=== PATIENT | male | born 1935 | race Caucasian/White ===

== ENCOUNTER 2016-07-24 17:07 | Outpatient (CLI) | payer MEDICARE | END 2016-07-24 17:08 | disposition critical access hospital (66) | LOC: EMS 17:07 | PROVIDERS: ATTEND Surgery | DX: R09.89 Other specified symptoms and signs involving the circulatory and respiratory systems (principal) | CPT/HCPCS: A0425; A0429 ==

== ENCOUNTER 2016-07-24 17:35 | Emergency (ER) | payer MEDICARE ==
[2016-07-24] MEDS ORDERED: IPRATROPIUM/ALBUTEROL 3 ML NEB INH STA (18:35)
[2016-07-24] MEDS ORDERED: SODIUM CHLORIDE 0.9% 1,000 ML IV ONE (18:37)
--- NOTE | 2016-07-24 18:38 | ED Physician Documentation ---
PD HPI DYSPNEA - Stated complaint Stated Complaint: SOA, LETHARGIC - Chief complaint Chief Complaint: Resp - History obtained from History obtained from: Patient, Family, EMS - History of Present Illness Timing - onset: How many weeks ago (2) Timing - onset during: Rest Timing - duration: Weeks (2) Timing - details: Gradual onset Pain level max: 0 Pain level now: 0 Inciting event(s): No: Out of meds, URI Improved by: O2, Rest Worsened by: Exertion Associated symptoms: Cough, Wheezing. No: Fever, Hemoptysis, Chest pain / discomfort, Palpitations Similar symptoms before: Diagnosis (COPD) Recently seen: Clinic (seen in clinic today for same. sent for chest xray) Review of Systems Constitutional: denies: Fever, Chills Throat: denies: Sore throat GI: denies: Abdominal Pain, Vomiting, Diarrhea Skin: denies: Rash Neurologic: denies: Confused, Altered mental status PD PAST MEDICAL HISTORY - Past Medical History Cardiovascular: Coronary artery disease Respiratory: Asthma Neuro: None Endocrine/Autoimmune: None : None HEENT: None Psych: None Musculoskeletal: Osteoarthritis Derm: None - Past Surgical History Past Surgical History: Yes Cardiovascular: CABG - Present Medications Home Medications: Ambulatory Orders Medication Instructions Recorded Confirmed Fluticasone 44 Mcg [Flovent] 07/08/15 metFORMIN [Glucophage] 07/08/15 Atenolol 50 mg PO DAILY 07/24/16 07/24/16 Azithromycin [Zithromax] 250 mg PO DAILY #4 tablet 07/24/16 Lisinopril [Prinivil] 15 mg PO DAILY 07/24/16 07/24/16 Montelukast [Singulair] 10 mg DAILY 07/24/16 07/24/16 - Allergies Allergies/Adverse Reactions: Allergies Allergy/AdvReac Type Severity Reaction Status Date / Time No Known Drug Allergies Allergy Verified 07/24/16 17:50 - Social History Does the pt smoke?: No Smoking Status: Never smoker Does the pt drink ETOH?: No Does the pt have substance abuse?: No - Immunizations Immunizations are current?: Yes - POLST Patient has POLST: No PD ED PE NORMAL - Vitals Vital signs reviewed: Yes - General General: Alert and oriented X 3, No acute distress, Other (Frail) - HEENT HEENT: Other (Dry lips) - Neck Neck: Supple, no meningeal sign - Cardiac Cardiac: RRR - Respiratory Respiratory: Other (Very diminished breath sounds bilaterally.) - Abdomen Abdomen: Soft, Non tender - Derm Derm: Warm and dry - Extremities Extremities: No edema - Neuro Neuro: Alert and oriented X 3 - Psych Psych: Normal mood, Normal affect Results - Vitals Vitals: Vital Signs - 24 hr 07/24/16 07/24/16 07/24/16 17:37 18:15 18:45 Temperature 36.4 C L Heart Rate 77 74 73 Respiratory 20 16 20 Rate Blood Pressure 105/63 106/57 L 105/63 O2 Saturation 92 94 91 L 07/24/16 07/24/16 07/24/16 19:15 19:21 20:00 Temperature Heart Rate 74 72 73 Respiratory 18 16 18 Rate Blood Pressure 108/61 O2 Saturation 93 07/24/16 07/24/16 20:25 20:35 Temperature Heart Rate 72 78 Respiratory 18 18 Rate Blood Pressure 105/56 L O2 Saturation 95 Oxygen O2 Source Room air - Labs Labs: Laboratory Tests 07/24/16 07/24/16 18:53 18:53 WBC 19.6 H RBC 3.45 L Hgb 11.8 L Hct 35.0 L MCV 101.4 H MCH 34.1 H MCHC 33.6 RDW 14.1 Plt Count 288 MPV 8.1 Neut # 16.0 H Lymph # 1.7 [place] # 1.5 H Eos # 0.2 Baso # 0.1 Absolute Nucleated RBC 0.00 Nucleated RBCs 0.0 Sodium 136 Potassium 3.8 Chloride 103 Carbon Dioxide 26 Anion Gap 7.0 BUN 19 Creatinine 0.4 L Estimated GFR (MDRD) 205 Glucose 127 H Calcium 8.9 Total Bilirubin 0.4 AST 14 ALT 12 Alkaline Phosphatase 72 Total Protein 7.1 Albumin 3.6 Globulin 3.5 Albumin/Globulin Ratio 1.0 Lipase 23 - Rads (name of study) cxr Radiology: Prelim report reviewed, EMP read contemporaneously, See rad report ( IMPRESSION: Increased interstitial densities at right lung base consistent with worsening airway inflammation or bronchiolitis without consolidation. Hiatal hernia unchanged. ) PD MEDICAL DECISION MAKING - ED course Complexity details: reviewed old records, reviewed results, re-evaluated patient , considered differential, d/w patient, d/w family ED course: Patient is an 81-year-old male with a history of asthma versus COPD. Was given nebulizer treatments here as well as dexamethasone. Breathing greatly improved. His oxygen saturation is between 93 and 95% on room air. He had greatly improved aeration of the bilateral lungs. Does have an elevated white blood cell count, but on review of his records does not appear uncommon for him to have white blood cell counts of 17-19,000. No fevers. No hypoxia. We did discuss admission and observation, patient and family declined this at this time and will return if he worsens. Started on azithromycin for possible secondary infection. No evidence of pneumonia on chest x-ray. Patient and family counseled regarding signs and symptoms for which I believe and urgent re- evaluation would be necessary. Patient with good understanding of and agreement to plan and is comfortable going home at this time This document was made in part using voice recognition software. While efforts are made to proofread this document, sound alike and grammatical errors may occur. Departure - Departure Disposition: 01 Home, Self Care Clinical Impression: COPD exacerbation Condition: Good Instructions: ED COPD Flare Follow-Up: your,doctor in 3 days [Other] Prescriptions: Azithromycin [Zithromax] 250 mg PO DAILY #4 tablet Comments: Use the inhaler with the spacer every 4 hours as needed at home. Return if you worsen or are not doing well at home. Discharge Date/Time: 07/24/16 20:45
--- NOTE | 2016-07-24 18:55 | XRAY Preliminary Report ---
Exam: XR Chest 2 View PA/LAT IMPRESSION: Increased interstitial densities at right lung base consistent with worsening airway infl ammation or bronchiolitis without consolidation. Hiatal hernia unchanged. [facility] SITE ID: [id number]
--- NOTE | 2016-07-24 18:57 | XRAY Report ---
EXAM: CHEST RADIOGRAPHY EXAM DATE: 07/24/2016 06:21 PM. CLINICAL HISTORY: Cough. COMPARISON: 07/08/2015. TECHNIQUE: 2 views. FINDINGS: Lungs/Pleura: There are increased streaky interstitial densities at the right lung base without conso lidation. No pleural effusion or pneumothorax. Mediastinum: Moderate-sized retrocardiac hiatal hernia is unchanged. Heart size is normal. Prior ster notomy noted. Other: None. IMPRESSION: Increased interstitial densities at right lung base consistent with worsening airway infl ammation or bronchiolitis without consolidation. Hiatal hernia unchanged. [facility] Referring Provider Line: [phone] SITE ID: [id number]
[2016-07-24 19:02] LABS: BASOPHILS # (AUTO) 0.1 10^3/uL (0.0-0.1); BASOPHILS % (AUTO) 0.6 %; EOSINOPHILS # (AUTO) 0.2 10^3/uL (0.0-0.7); EOSINOPHILS % (AUTO) 1.2 %; HGB - HEMOGLOBIN 11.8 g/dL (14.0-18.0); LYMPHOCYTES # (AUTO) 1.7 10^3/uL (1.5-3.5); LYMPHOCYTES % (AUTO) 8.6 %; MEAN CORPUSCULAR HEMOGLOBIN 34.1 pg (27.0-31.0); MEAN CORPUSCULAR HGB CONC 33.6 g/dL (32.0-36.0); MEAN CORPUSCULAR VOLUME 101.4 fL (80.0-94.0); MEAN PLATELET VOLUME 8.1 fL (7.4-11.4); NEUTROPHILS % (AUTO) 81.6 %; RED BLOOD COUNT 3.45 10^6/uL (4.70-6.10); RED CELL DISTRIBUTION WIDTH 14.1 % (12.0-15.0); UNCORRECTED WHITE BLOOD COUNT 19.6 x10^3/uL; WHITE BLOOD COUNT 19.6 x10^3/uL (4.8-10.8)
[2016-07-24 19:05] LABS: MONOCYTES # (AUTO) 1.5 10^3/uL (0.0-1.0)
[2016-07-24 19:16] LABS: BILIRUBIN,TOTAL 0.4 mg/dL (0.2-1.0); CALCIUM 8.9 mg/dL (8.5-10.3); CREATININE 0.4 mg/dL (0.6-1.2); POTASSIUM 3.8 mmol/L (3.5-5.0); TOTAL PROTEIN 7.1 g/dL (6.7-8.2)
[2016-07-24] MEDS ORDERED: ALBUTEROL NEB 2.5 MG/3 ML INH STA (19:42)
[2016-07-24] MEDS ORDERED: ALBUTEROL NEB 2.5 MG/3 ML INH ONE (20:02)
[2016-07-24] MEDS ORDERED: AZITHROMYCIN 250 MG TABLET PO STA (20:12)
[2016-07-24] MEDS ORDERED: DEXAMETHASONE 10 MG/ML VIAL PO STA (20:12)
[2016-07-24] MEDS ORDERED: AZITHROMYCIN 250 MG TABLET PO ONE (20:15)
[2016-07-24] MEDS ORDERED: CHERRY SYRUP 10 ML UDC PO ONE (20:15)
[2016-07-24] MEDS ORDERED: DEXAMETHASONE 10 MG/ML VIAL ONE (20:15)
[2016-07-24] MEDS ORDERED: ALBUTEROL 8 GM INHALER INH STA (20:20)
[2016-07-24] MEDS ORDERED: ALBUTEROL 8 GM INHALER INH ONE (20:25)
[2016-07-24 20:36] VITALS: BP 105/56
== END 2016-07-24 20:45 | disposition home or self-care (01) ==
LOC: ED 17:35
DX: J44.1 Chronic obstructive pulmonary disease with (acute) exacerbation (principal); J45.909 Unspecified asthma, uncomplicated; I25.10 Atherosclerotic heart disease of native coronary artery without angina pectoris; Z95.1 Presence of aortocoronary bypass graft
CPT/HCPCS: 36415; 71020; 80053; 83690; 85025; 94640; 94664; 96360; 96361; 99284; 99285; A9270; J7613; J7620

== ENCOUNTER 2017-04-11 19:43 | Outpatient (CLI) | payer MEDICARE | END 2017-04-11 19:44 | disposition critical access hospital (66) | LOC: EMS 19:43 | PROVIDERS: ATTEND Surgery | DX: R53.1 Weakness (principal); W01.0XXA Fall on same level from slipping, tripping and stumbling without subsequent striking against object, initial encounter; Y93.01 Activity, walking, marching and hiking; Y92.009 Unspecified place in unspecified non-institutional (private) residence as the place of occurrence of the external cause | CPT/HCPCS: A0425; A0429 ==

== ENCOUNTER 2017-04-11 20:08 | Inpatient (IN) | payer MEDICARE ==
--- NOTE | 2017-04-11 20:32 | ED Physician Documentation ---
PD HPI Fall - Stated complaint Stated Complaint: FALL - Chief complaint Chief Complaint: Neuro - History obtained from History obtained from: Patient - History of Present Illness Mechanism of injury: Slipped Fall distance: Standing position Where injury occurred: Home Timing - onset: How many minutes ago (45) Injury(ies) location: Right Lower Extremity Quality of pain: Pain Similar symptoms before: Has not had sx before - Additional information Additional information: The patient is an 81-year-old male who arrives via ambulance from home where he fell while walking with his cane about 45 minutes prior to arrival. He has been unable to get up since that time because of pain in his right hip. He denies hitting his head or losing consciousness. He denies neck or back pain. His past medical history is significant for coronary artery disease, status post CABG. He is not on anticoagulant medication. Review of Systems Constitutional: denies: Fever Ears: denies: Tinnitus/ringing Nose: denies: Congestion Throat: denies: Sore throat Cardiac: denies: Chest pain / pressure, Palpitations Respiratory: denies: Dyspnea, Cough GI: denies: Abdominal Pain, Nausea, Vomiting : denies: Dysuria Skin: reports: Other (Easy bruising.). denies: Rash Musculoskeletal: reports: Extremity pain (Right lower extremity.). denies: Neck pain, Back pain Neurologic: denies: Focal weakness, Numbness, Headache, Head injury, LOC PD PAST MEDICAL HISTORY - Past Medical History Cardiovascular: Coronary artery disease Respiratory: Asthma Neuro: None Endocrine/Autoimmune: Type 2 diabetes : None HEENT: None Psych: None Musculoskeletal: Osteoarthritis Derm: None - Past Surgical History Past Surgical History: Yes Cardiovascular: CABG - Present Medications Home Medications: Ambulatory Orders Medication Instructions Recorded Confirmed Fluticasone 44 Mcg [Flovent] 07/08/15 metFORMIN [Glucophage] 07/08/15 Atenolol 50 mg PO DAILY 07/24/16 07/24/16 Azithromycin [Zithromax] 250 mg PO DAILY #4 tablet 07/24/16 Lisinopril [Prinivil] 15 mg PO DAILY 07/24/16 07/24/16 Montelukast [Singulair] 10 mg DAILY 07/24/16 07/24/16 - Allergies Allergies/Adverse Reactions: Allergies Allergy/AdvReac Type Severity Reaction Status Date / Time No Known Drug Allergies Allergy Verified 07/24/16 17:50 - Social History Does the pt smoke?: No Smoking Status: Never smoker Does the pt drink ETOH?: No Does the pt have substance abuse?: No - Immunizations Immunizations are current?: Yes - POLST Patient has POLST: No PD ED PE NORMAL - Vitals Vital signs reviewed: Yes (Borderline systolic hypertension initially.) - General General: Alert and oriented X 3, Well developed/nourished - HEENT HEENT: Atraumatic, PERRL, EOMI, Other (Poor dentition.) - Neck Neck: No bony TTP, No JVD, Other (Full cervical range of motion, without tenderness.) - Cardiac Cardiac: RRR, No murmur - Respiratory Respiratory: No respiratory distress, Other (Few scattered end expiratory wheezes.) - Abdomen Abdomen: Soft, Non tender - Back Back: No CVA TTP - Derm Derm: No rash, Other (Patches of ecchymosis on the forearms.) - Extremities Extremities: No edema, No calf tenderness / cord, Other (Shortening of the right leg compared to the left. Tenderness to palpation of the right hip, exacerbated by internal or external rotation of the right hip. Distal neurovascular is intact.) - Neuro Neuro: Alert and oriented X 3, No motor deficit, No sensory deficit Eye Opening: Spontaneous Motor: Obeys Commands Verbal: Oriented GCS Score: 15 Results - Vitals Vitals: Vital Signs - 24 hr 04/11/17 04/11/17 04/11/17 20:11 21:21 22:11 Temperature 36.6 C 36.6 C 36.9 C Heart Rate 100 92 103 H Respiratory 18 16 16 Rate Blood Pressure 138/74 H 143/87 H 121/75 O2 Saturation 100 94 93 04/11/17 22:37 Temperature Heart Rate 96 Respiratory 18 Rate Blood Pressure 127/72 O2 Saturation 95 Oxygen O2 Source Room air - EKG (time done) 20:39 Rate: Rate (enter#) (96) Rhythm: NSR Intervals: Other (Nonspecific IVCD.) Ischemia: Non specific changes Compare to prior EKG: Old EKG unavailable Computer interpretation: Disagree with computer (NSR, not atrial flutter.) - Labs Labs: Laboratory Tests 04/11/17 04/11/17 04/11/17 20:35 20:41 20:41 WBC 12.3 H RBC 3.45 L Hgb 11.9 L Hct 34.8 L MCV 101.0 H MCH 34.6 H MCHC 34.3 RDW 13.7 Plt Count 267 MPV 8.1 Neut # 8.3 H Lymph # 2.0 Tama # 1.1 H Eos # 0.9 H Baso # 0.1 Absolute Nucleated RBC 0.00 Nucleated RBC % 0.0 Sodium 130 L Potassium 4.7 Chloride 97 L Carbon Dioxide 26 Anion Gap 7.0 BUN 20 Creatinine 0.5 L Estimated GFR (MDRD) 159 Glucose 175 H Calcium 8.8 Total Bilirubin 0.3 AST 22 ALT 18 Alkaline Phosphatase 89 Troponin I < 0.04 Total Protein 7.1 Albumin 3.9 Globulin 3.2 Albumin/Globulin Ratio 1.2 Lipase 39 Urine Color Urine Clarity Urine pH Ur Specific [place] Urine Protein Urine Glucose (UA) Urine Ketones Urine Occult Blood Urine Nitrite Urine Bilirubin Urine Urobilinogen Ur Leukocyte Esterase Ur Microscopic Review Urine Culture Comments Blood Type Blood Type Recheck Antibody Screen 04/11/17 04/11/17 04/11/17 20:50 20:55 22:09 WBC RBC Hgb Hct MCV MCH MCHC RDW Plt Count MPV Neut # Lymph # Tama # Eos # Baso # Absolute Nucleated RBC Nucleated RBC % Sodium Potassium Chloride Carbon Dioxide Anion Gap BUN Creatinine Estimated GFR (MDRD) Glucose Calcium Total Bilirubin AST ALT Alkaline Phosphatase Troponin I Total Protein Albumin Globulin Albumin/Globulin Ratio Lipase Urine Color YELLOW Urine Clarity CLEAR Urine pH 6.0 Ur Specific [place] 1.020 Urine Protein NEGATIVE Urine Glucose (UA) NEGATIVE Urine Ketones TRACE Urine Occult Blood NEGATIVE Urine Nitrite NEGATIVE Urine Bilirubin NEGATIVE Urine Urobilinogen 1 (NORMAL) Ur Leukocyte Esterase NEGATIVE Ur Microscopic Review NOT INDICATED Urine Culture Comments NOT INDICATED Blood Type O POSITIVE Blood Type Recheck O POSITIVE Antibody Screen NEGATIVE - Rads (name of study) Right hip Radiology: Prelim report reviewed, EMP read contemporaneously, See rad report ( Acute right femoral intertrochanteric fracture. Severe bilateral hip osteoarthritis.) PD MEDICAL DECISION MAKING - ED course Complexity details: reviewed old records, reviewed results, re-evaluated patient , considered differential, d/w patient, d/w family, d/w sustainable design consultant ED course: Patient's presentation is significant for an intertrochanteric fracture of the right femur. No other traumatic injuries are found on physical examination.Glucose is mildly elevated at 175, and sodium is hyponatremic at 130. Treatment in the emergency department included administration of morphine 4 mg IV 2, and normal saline IV. I discussed his condition with Dr. Neville for orthopedic surgery. He asked that the hospitalist admit the patient and evaluate him preoperatively in anticipation of operative repair. I discussed his condition with Dr. Hernandez, Hospitalist, who admitted him to the hospital. Departure - Departure Disposition: 66 [facility] DC/Xfer Clinical Impression: History of coronary artery disease Closed right hip fracture Qualifiers: Encounter type: initial encounter Qualified Code(s): S72.001A - Fracture of unspecified part of neck of right femur, initial encounter for closed fracture Condition: Stable Discharge Date/Time: 04/11/17 23:31
[2017-04-11 20:52] LABS: BASOPHILS # (AUTO) 0.1 10^3/uL (0.0-0.1); BASOPHILS % (AUTO) 0.7 %; EOSINOPHILS # (AUTO) 0.9 10^3/uL (0.0-0.7); EOSINOPHILS % (AUTO) 7.1 %; HGB - HEMOGLOBIN 11.9 g/dL (14.0-18.0); LYMPHOCYTES % (AUTO) 16.2 %; MEAN CORPUSCULAR HEMOGLOBIN 34.6 pg (27.0-31.0); MEAN CORPUSCULAR HGB CONC 34.3 g/dL (32.0-36.0); MEAN PLATELET VOLUME 8.1 fL (7.4-11.4); MONOCYTES # (AUTO) 1.1 10^3/uL (0.0-1.0); MONOCYTES % (AUTO) 8.6 %; NEUTROPHILS # (AUTO) 8.3 10^3/uL (1.5-6.6); NEUTROPHILS % (AUTO) 67.4 %; PLT - PLATELET COUNT 267 10^3/uL (130-450); RED BLOOD COUNT 3.45 10^6/uL (4.70-6.10); RED CELL DISTRIBUTION WIDTH 13.7 % (12.0-15.0); WHITE BLOOD COUNT 12.3 x10^3/uL (4.8-10.8)
[2017-04-11 20:57] LABS: ALBUMIN 3.9 g/dL (3.2-5.5); ALBUMIN/GLOBULIN RATIO 1.2 (1.0-2.2); BILIRUBIN,TOTAL 0.3 mg/dL (0.2-1.0); CALCIUM 8.8 mg/dL (8.5-10.3); CREATININE 0.5 mg/dL (0.6-1.2); TOTAL PROTEIN 7.1 g/dL (6.7-8.2)
[2017-04-11 21:13] LABS: BILIRUBIN,URINE NEGATIVE (NEGATIVE); GLUCOSE, URINE (UA) NEGATIVE (NEGATIVE); KETONES,URINE (UA) TRACE mg/dL (NEGATIVE); LEUKOCYTE ESTERASE, URINE NEGATIVE (NEGATIVE); NITRITE,URINE NEGATIVE (NEGATIVE); OCCULT BLOOD,URINE NEGATIVE (NEGATIVE); PROTEIN,URINE NEGATIVE (NEGATIVE); UROBILINOGEN,URINE 1 (NORMAL) E.U./dL (NORMAL)
[2017-04-11] MEDS ORDERED: MORPHINE 2 MG/ML CARPUJECT IVP STA (21:14)
[2017-04-11 21:15] LABS: CLARITY,URINE CLEAR (CLEAR)
--- NOTE | 2017-04-11 21:42 | PROVIDER PROGRESS NOTE ---
Subjective - Prog Note Date Prog Note Date: 04/11/17 Prog Note Time: 21:36 - Subjective Subjective: Patient slipped this evening, sustaining a GLF and injuring his right hip. No LOC or other injury. Unable to stand or weight bearing on right side. Objective - Vital Signs/Intake & Output Vital Signs: Vital Signs x48h Temp Pulse Resp BP Pulse Ox 04/11/17 21:21 36.6 C 92 16 143/87 H 94 04/11/17 20:11 36.6 C 100 18 138/74 H 100 - Lab Results Fish Bones: 04/11/17 20:41 04/11/17 20:41 Other Labs: Lab Results x24hrs 04/11/17 04/11/17 04/11/17 Range/Units 20:50 20:41 20:41 WBC 12.3 H (4.8-10.8) x10^3/uL RBC 3.45 L (4.70-6.10) 10^6/uL Hgb 11.9 L (14.0-18.0) g/dL Hct 34.8 L (42.0-52.0) % MCV 101.0 H (80.0-94.0) fL MCH 34.6 H (27.0-31.0) pg MCHC 34.3 (32.0-36.0) g/dL RDW 13.7 (12.0-15.0) % Plt Count 267 (130-450) 10^3/uL MPV 8.1 (7.4-11.4) fL Neut # 8.3 H (1.5-6.6) 10^3/uL Lymph # 2.0 (1.5-3.5) 10^3/uL Hardy # 1.1 H (0.0-1.0) 10^3/uL Eos # 0.9 H (0.0-0.7) 10^3/uL Baso # 0.1 (0.0-0.1) 10^3/uL Absolute Nucleated RBC 0.00 x10^3/uL Nucleated RBC % 0.0 /100WBC Sodium 130 L (135-145) mmol/L Potassium 4.7 (3.5-5.0) mmol/L Chloride 97 L (101-111) mmol/L Carbon Dioxide 26 (21-32) mmol/L Anion Gap 7.0 (6-13) BUN 20 (6-20) mg/dL Creatinine 0.5 L (0.6-1.2) mg/dL Estimated GFR (MDRD) 159 (>89) Glucose 175 H (70-100) mg/dL Calcium 8.8 (8.5-10.3) mg/dL Total Bilirubin 0.3 (0.2-1.0) mg/dL AST 22 (10-42) IU/L ALT 18 (10-60) IU/L Alkaline Phosphatase 89 (42-121) IU/L Total Protein 7.1 (6.7-8.2) g/dL Albumin 3.9 (3.2-5.5) g/dL Globulin 3.2 (2.1-4.2) g/dL Albumin/Globulin Ratio 1.2 (1.0-2.2) Lipase 39 (22-51) U/L Urine Color YELLOW Urine Clarity CLEAR (CLEAR) Urine pH 6.0 (5.0-7.5) PH Ur Specific [place] 1.020 (1.002-1.030) Urine Protein NEGATIVE (NEGATIVE) mg/dL Urine Glucose (UA) NEGATIVE (NEGATIVE) mg/dL Urine Ketones TRACE (NEGATIVE) mg/dL Urine Occult Blood NEGATIVE (NEGATIVE) Urine Nitrite NEGATIVE (NEGATIVE) Urine Bilirubin NEGATIVE (NEGATIVE) Urine Urobilinogen 1 (NORMAL) (NORMAL) E.U./dL Ur Leukocyte Esterase NEGATIVE (NEGATIVE) Ur Microscopic Review NOT INDICATED Urine Culture Comments NOT INDICATED - Diagnostic Imaging Diagnostic Imaging Comments: XR show a right IT hip fracture - Other Results/Comments Other Results/Comments: EXAM: Painful right hip motion. Moves toes well. Sensation intact. Good cap filling Assessment/Plan - Problem List (1) Intertrochanteric fracture of right hip Qualifiers: Encounter type: initial encounter Fracture type: closed Fracture alignment: displaced Qualified Code(s): S72.141A - Displaced intertrochanteric fracture of right femur, initial encounter for closed fracture
--- NOTE | 2017-04-11 21:50 | XRAY Report ---
EXAM: RIGHT HIP AND PELVIS RADIOGRAPHY EXAM DATE: 04/11/2017 09:16 PM. HISTORY: Right hip pain after falling. COMPARISONS: None. TECHNIQUE: 1 view of the pelvis and 1 view of the hip. FINDINGS: Bones: There is an acute intertrochanteric fracture of the right proximal femur. No significant displ acement is seen, but there is marked apex ventral angulation. Joints: Marked cartilage space loss and proliferative changes are present in the hip joints bilateral ly. Soft Tissues: Normal. No soft tissue swelling. IMPRESSION: 1. Acute right femoral intertrochanteric fracture. 2. Severe bilateral hip osteoarthritis. [facility] Referring Provider Line: [phone] SITE ID: [id number]
--- NOTE | 2017-04-11 21:50 | XRAY Preliminary Report ---
Exam: XR HIP W/PELVIS 1V RT IMPRESSION: 1. Acute right femoral intertrochanteric fracture. 2. Severe bilateral hip osteoarthritis. [facility] SITE ID: [id number]
--- NOTE | 2017-04-11 22:59 | XRAY Report ---
EXAM: CHEST RADIOGRAPHY EXAM DATE: 04/11/2017 10:50 PM. CLINICAL HISTORY: Fall . COMPARISON: 07/24/2016. TECHNIQUE: 1 view. FINDINGS: Lungs/Pleura: No focal opacities evident. No pleural effusion. No pneumothorax. Mediastinum: There is cardiomegaly with thoracic aortic tortuosity and calcification. 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 There is a moderate size hiatal hernia. IMPRESSION: No acute intrathoracic plain film abnormality. [facility] Referring Provider Line: [phone] SITE ID: [id number]
[2017-04-11] MEDS ORDERED: ACETAMINOPHEN 500 MG TABLET PO SCH (23:00)
[2017-04-11] MEDS ORDERED: FLUTICASONE HFA 44 MCG INHALER INH SCH ×2 (23:00→23:45)
[2017-04-11] MEDS ORDERED: PROCHLORPERAZINE 10 MG/2 ML VIAL IVP PRN ×2 (23:06→23:53)
[2017-04-11] MEDS ORDERED: MORPHINE 2 MG/ML CARPUJECT IVP PRN ×2 (23:06→23:53)
[2017-04-11] MEDS ORDERED: ONDANSETRON 4 MG/2 ML VIAL IVP PRN ×2 (23:06→23:53)
[2017-04-11] MEDS ORDERED: oxyCODONE 5 MG TABLET PO PRN ×2 (23:06→23:53)
[2017-04-11] MEDS ORDERED: SODIUM CHLORIDE FLUSH 0.9% 10 ML SYRINGE IVP PRN ×2 (23:06→23:53)
[2017-04-11] MEDS ORDERED: METOPROLOL 5 MG/5 ML VIAL IVP ONE (23:17)
[2017-04-11] MEDS ORDERED: IPRATROPIUM 0.2 MG/ML NEB INH PRN ×2 (23:19→23:53)
[2017-04-11] MEDS ORDERED: ACETAMINOPHEN 325 MG TABLET PO SCH (23:45)
[2017-04-12] MEDS: METOPROLOL 5 MG/5 ML VIAL IVP SCH ×2 (01:42→20:58)
[2017-04-12] MEDS: SODIUM CHLORIDE FLUSH 0.9% 10 ML SYRINGE IVP SCH ×3 (01:43→20:40)
[2017-04-12] MEDS ORDERED: SODIUM CHLORIDE 0.9% 1,000 ML IV SCH ×3 (05:00→08:41)
[2017-04-12] MEDS ORDERED: LACTATED RINGERS 1,000 ML IV SCH (06:00)
[2017-04-12] MEDS ORDERED: SODIUM CHLORIDE FLUSH 0.9% 10 ML SYRINGE IVP SCH ×2 (06:00→14:00)
[2017-04-12] MEDS: PANTOPRAZOLE 40 MG TABLET PO SCH (06:14)
--- NOTE | 2017-04-12 06:15 | CONSULTATION NOTE ---
DATE OF SERVICE: 04/11/2017 Physician: Toni Neville MD DATE OF CONSULTATION: 04/11/2017 REFERRING PHYSICIAN: Dr. Ortiz of the Emergency Room Department. CHIEF COMPLAINT: "My right hip hurts." HISTORY OF PRESENT ILLNESS: The patient is an 81-year-old gentleman who apparently had a fall on the day of his admission, landing on his right side. There was no loss of consciousness or other injuries. No prior hip fractures. He was unable to stand or weight bear on the right side after this fall. He was taken to the emergency room where x-rays showed an angulated right intertrochanteric hip fracture. He had associated moderate amount of osteoarthritis to his hip as well. The patient had been living at home independently prior to this fall. PHYSICAL EXAMINATION: Showed an elderly, male in a moderate amount of pain. The patient had painful hip range of motion today. Had lateral tenderness about the hip. Moves his toes satisfactory. Sensation intact distally. Good capillary filling noted. RADIOGRAPH STUDIES: X-rays were taken of his right hip showed angulated impacted stable intertrochanteric hip fracture. Moderate amount of osteoarthritis of both hips. ASSESSMENT: 1. Closed, angulated right intertrochanteric hip fracture. 2. Osteoarthritis of the right hip. 3. History of chronic obstructive pulmonary disease. 4. History of asthma. PLAN: Patient will be admitted to the medical service for medical evaluation preoperatively and medical stabilization. We will tentatively plan on proceeding with a short Intertan nailing of his right hip fracture tomorrow morning pending medical clearance. The risks and benefits of surgical intervention will be explained to the patient. Questions will be answered. If he is willing to proceed with surgery, we will have him sign the consent form in the morning. TD: 04/12/2017 07:14
[2017-04-12] MEDS ORDERED: PANTOPRAZOLE 40 MG TABLET PO SCH (07:00)
--- NOTE | 2017-04-12 07:42 | HISTORY & PHYSICAL EXAMINATION ---
DATE OF SERVICE: 04/11/2017 Physician: Carine Hernandez MD DATE OF ADMISSION: 04/11/2017 CHIEF COMPLAINT: Fall at home. HISTORY OF PRESENT ILLNESS: The patient is a pleasant 81-year-old white male who was brought into [facility] after he fell at his home. He usually uses a cane when he ambulates and on the evening of 04/11/2017 he was trying to get up from the couch to go to the bathroom, at which time he lost his balance, tripped, fell backwards and he fell on his right side. Subsequently, developed pain of his right hip and at the ER, was found with a right femoral intertrochanteric fracture. The case was discussed with the orthopedic surgeon , Dr. Neville who requested the medical service to do preoperative evaluation and admit the patient. Dr. Neville is planning surgery for the morning of 04/12/2017. When I examined the patient, he reported no symptoms of shortness of breath, chest pain, dizziness or palpitations prior to or after the fall. He denied loss of consciousness. He was in his usual state of health during the past few weeks, he denied nausea, vomiting, diarrhea, fever, cough or any symptoms. He did confirm having a history of coronary artery disease and underwent coronary artery bypass graft; however, reported no recent cardiac problem. He also reported history of asthma and uses inhalers; however, his respiratory status he felt was stable. He appeared thin and frail and I asked him about his nutrition. He told me he eats "regular food." He reported that he lost some weight, but could not quantify. He mentioned that his is a good cook and he eats regular meals and has a reasonably good appetite. Regarding history of falls, the patient reported that he fell "few times," "occasionally," he could not further specify. Reviewing ER workup, there was an EKG per machine reading atrial fibrillation/ flutter. However, on my review, there were organized P waves preceding QRS complexes and it seemed as a sinus rhythm with some ectopic beats. ER workup showed: Troponin was negative. White blood cell count was slightly elevated at 12.3. Sodium was 130, BUN 20, creatinine 0.5, blood glucose 175. Liver function test unremarkable. Hemoglobin 11.9, MCV 101.0. Chest x-ray showed some chronic abnormalities including hiatal hernia, but no acute infiltrate. Regarding the EKG, reviewing prior medical records, no previous one was available to compare. PAST MEDICAL HISTORY: 1. Coronary artery disease/coronary artery bypass graft. 2. Type 2 diabetes, on metformin. 3. Hypertension. 4. Asthma. 5. Osteoarthritis. 6. Prostate hypertrophy. OUTPATIENT MEDICATIONS: Included: 1. Metformin. 2. Montelukast. 3. Lisinopril. 4. Fluticasone. 5. Atenolol. Please note that medication list in EMR is not yet updated. ALLERGIES: NO KNOWN DRUG ALLERGIES. FAMILY HISTORY: Reviewed, noncontributory. SOCIAL HISTORY: The patient is a nonsmoker, nondrinker. He lives in his own home with his . He uses a cane to ambulate. He did not discuss details of recent falls with me. However, it seems that he did fall a few times and he had some notable bruises. REVIEW OF SYSTEMS: Other than the fall, the patient denied all complaints; he was a poor historian. I completed 12-point review. Pertinent negatives are dictated above at history of present illness. PHYSICAL EXAMINATION: VITAL SIGNS: Temperature 36.6 Celsius, heart rate between 90 and 100, blood pressure 130/70, respiratory rate 18, oxygen saturation 95% on room air. GENERAL: The patient is a well-developed, frail, thin, elderly male, who is not in acute distress. NEUROLOGIC: Alert, oriented answered all my questions appropriately, was neurologically nonfocal. PSYCHIATRIC: Cooperative, hard of hearing, but pleasant to talk to. MUSCULOSKELETAL: Thin with temporal wasting, decreased muscle mass. Some bruises on the upper arms. Right hip tenderness and decreased range of motion. SKIN: Mild pallor, no jaundice. Oral mucosa dry. CARDIOVASCULAR: S1, S2. Regular rate and rhythm. I could not hear pathologic murmur. RESPIRATORY: Clear to auscultation without wheezes or crackles. ABDOMEN: Soft, benign. Nontender. Bowel tones present. LYMPH: No lymphedema. ASSESSMENT AND PLAN: The patient is an 81-year-old male who suffered a mechanical fall and as a result, a right intertrochanteric femur fracture. Dr. Neville, the orthopedic surgeon, is planning surgical repair for the morning of 04/12/2017. Reviewing the patient's history , he offers no complaint for angina-like symptoms, he appears with stable cardiac status. His diabetes is reasonably well controlled with blood glucose below 200. He has non-insulin dependent diabetes. As far as his EKG, there are some nonspecific changes with bundle branch block pattern, however, no acute ischemic sign and I suspect that these are chronic EKG changes given the patient's underlying cardiac history. The patient's troponin was negative. He is not in decompensated heart failure and does not have an acute NH, which could be a contraindication to surgery. There are some minor additional abnormalities, which include slightly elevated white blood cell count; however, chest x-ray was normal and urinalysis was unremarkable as well. I suspect this is reactive leukocytosis. In addition, there is microcytic anemia , which also seemed to be a chronic problem. The patient reports no bleeding complication. Reviewing prior CBCs, patient had similar numbers and this appears to be his baseline hemoglobin. In summary, there is no contraindication to proceed with surgery. Patient is hemodynamically stable. RECOMMENDATIONS: 1. Patient will be n.p.o. after midnight. I recommend to start gentle IV hydration starting early in the morning. Overnight, we should probably let the patient sleep and start fluids in the morning. 2. I recommend continuing atenolol as perioperative beta giselle to prevent cardiac complications. When I examined the patient, he had a few ectopic beats and his EKG showed PVCs as well. Therefore, I ordered small dose of IV metoprolol. We will try to bring his heart rate down to the 80s again to avoid perioperative cardiac ischemia. Notably, he has history of coronary artery disease. 3. Regarding diabetic control, patient had a blood glucose below 200 and he will be n.p.o. therefore overnight, he does not need blood glucose checks. Subsequently, I ordered a hair dresser consult to assess him for malnutrition and I spoke with the patient about trying to eat better to aid postsurgical healing and recovery. I would probably allow regular diet as nutrition would be priority to diabetic control. 4. Prior to surgery, we will hold metformin. 5. Prior to surgery, we will hold diuretic/lisinopril. 6. Regarding history of asthma, we will continue outpatient inhaler and in case of shortness of breath, we will use p.r.n. ipratropium. 7. Deep venous thrombosis prophylaxis, I recommend sequential compression device. In addition, pharmacologic prophylaxis; however, using decreased dose of subcutaneous heparin considering patient's increased bleeding risk due to advanced age, malnutrition. 8. Gastrointestinal prophylaxis, I will use Protonix as the patient has hiatal hernia. 9. Regarding pain control, I ordered Tylenol around the clock. We will also use morphine and oxycodone as needed. 10. CODE STATUS: FULL CODE. 11. Disposition/Attestation: I certify that the reasonable expectation, based on admission condition, is that the patient will be discharged home or to another facility within 96 hrs. Most likely he will discharge to [facility] for rehabilitation, PT, OT following hip surgery. Time spent in the care of this patient was 55 minutes. TD: 04/12/2017 08:41 IVAN
[2017-04-12 08:06] LABS: BASOPHILS # (AUTO) 0.1 10^3/uL (0.0-0.1); BASOPHILS % (AUTO) 0.4 %; EOSINOPHILS % (AUTO) 0.1 %; HGB - HEMOGLOBIN 10.7 g/dL (14.0-18.0); LYMPHOCYTES % (AUTO) 6.1 %; MEAN CORPUSCULAR HEMOGLOBIN 34.8 pg (27.0-31.0); MEAN CORPUSCULAR VOLUME 102.3 fL (80.0-94.0); MONOCYTES # (AUTO) 1.6 10^3/uL (0.0-1.0); MONOCYTES % (AUTO) 9.3 %; NEUTROPHILS # (AUTO) 14.1 10^3/uL (1.5-6.6); NEUTROPHILS % (AUTO) 84.1 %; PLT - PLATELET COUNT 221 10^3/uL (130-450); RED BLOOD COUNT 3.09 10^6/uL (4.70-6.10); RED CELL DISTRIBUTION WIDTH 13.8 % (12.0-15.0); WHITE BLOOD COUNT 16.7 x10^3/uL (4.8-10.8)
[2017-04-12 08:19] LABS: ALBUMIN 3.6 g/dL (3.2-5.5); ALBUMIN/GLOBULIN RATIO 1.2 (1.0-2.2); BILIRUBIN,TOTAL 0.5 mg/dL (0.2-1.0); CALCIUM 8.5 mg/dL (8.5-10.3); CREATININE 0.4 mg/dL (0.6-1.2); MAGNESIUM 1.5 mg/dL (1.7-2.8); TOTAL PROTEIN 6.6 g/dL (6.7-8.2)
[2017-04-12 08:33] LABS: HB2 TOTAL 11.1 g/dL; HEMOGLOBIN A1C 0.38 g/dL; HEMOGLOBIN A1C % 5.3 % (4.6-6.2)
[2017-04-12] MEDS: INSULIN ASPART 300 UNIT/3 ML PEN SUBQ SCH ×4 (08:50→20:40)
[2017-04-12] MEDS: POLYETHYLENE GLYCOL 3350 17 GM PACKET PO SCH (08:51)
[2017-04-12 08:57] LABS: PLATELET ESTIMATE, MANUAL NORMAL (130-450,000) (NORMAL); PLATELET MORPHOLOGY NORMAL APPEARANCE (NORMAL); RBC MORPHOLOGY (MULTIPLE) NORMAL APPEARANCE (NORMAL)
[2017-04-12] MEDS ORDERED: NON FORMULARY MED (Atenolol [Atenolol] 50 MG) PO SCH (09:00)
[2017-04-12] MEDS ORDERED: POLYETHYLENE GLYCOL 3350 17 GM PACKET PO SCH (09:00)
--- NOTE | 2017-04-12 09:10 | PROVIDER PROGRESS NOTE ---
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) Objective - Vital Signs/Intake & Output Vital Signs: Vital Signs x48h Temp Pulse Resp BP Pulse Ox 04/12/17 08:00 36.6 C 85 15 110/70 90 L 04/12/17 01:55 90 16 107/72 04/12/17 01:53 90 16 126/67 Intake & Output: Intake & Output 04/09/17 04/10/17 04/11/17 04/12/17 23:59 23:59 23:59 23:59 Intake Total 100 Output Total 430 Balance -330 - Lab Results Fish Bones: 04/12/17 07:50 04/12/17 07:50 Other Labs: Lab Results x24hrs 04/12/17 04/12/17 04/12/17 Range/Units 07:50 07:50 07:50 WBC 16.7 H (4.8-10.8) x10^3/uL RBC 3.09 L (4.70-6.10) 10^6/uL Hgb 10.7 L (14.0-18.0) g/dL Hct 31.6 L (42.0-52.0) % MCV 102.3 H (80.0-94.0) fL MCH 34.8 H (27.0-31.0) pg MCHC 34.0 (32.0-36.0) g/dL RDW 13.8 (12.0-15.0) % Plt Count 221 (130-450) 10^3/uL MPV 8.0 (7.4-11.4) fL Neut # 14.1 H (1.5-6.6) 10^3/uL Lymph # 1.0 L (1.5-3.5) 10^3/uL [place] # 1.6 H (0.0-1.0) 10^3/uL Eos # 0.0 (0.0-0.7) 10^3/uL Baso # 0.1 (0.0-0.1) 10^3/uL Absolute Nucleated RBC 0.01 x10^3/uL Nucleated RBC % 0.1 /100WBC Manual Slide Review Indicated WBC Morphology (NORMAL) Platelet Estimate NORMAL (130-450,000) (NORMAL) Platelet Morphology NORMAL APPEARANCE (NORMAL) RBC Morph Micro Appear NORMAL APPEARANCE (NORMAL) Sodium 130 L (135-145) mmol/L Potassium 4.5 (3.5-5.0) mmol/L Chloride 94 L (101-111) mmol/L Carbon Dioxide 26 (21-32) mmol/L Anion Gap 10.0 (6-13) BUN 19 (6-20) mg/dL Creatinine 0.4 L (0.6-1.2) mg/dL Estimated GFR (MDRD) 205 (>89) Glucose 136 H (70-100) mg/dL Glycated Hemoglobin 5.3 (4.6-6.2) % Estim Average Glucose 105 H (70-100) Calcium 8.5 (8.5-10.3) mg/dL Magnesium 1.5 L (1.7-2.8) mg/dL Total Bilirubin 0.5 (0.2-1.0) mg/dL AST 25 (10-42) IU/L ALT 16 (10-60) IU/L Alkaline Phosphatase 64 (42-121) IU/L Total Protein 6.6 L (6.7-8.2) g/dL Albumin 3.6 (3.2-5.5) g/dL Globulin 3.0 (2.1-4.2) g/dL Albumin/Globulin Ratio 1.2 (1.0-2.2) - Other Results/Comments Other Results/Comments: EXAM: Painful hiop motion. Moves toes well. Sensation intact. Good cap filling Assessment/Plan - Problem List (1) Intertrochanteric fracture of right hip Impression: Cleared for surgery by medicine PLAN: Spoke with reyna's due to patient's confusion. She wishes to proceed with surgical fixation of right hip fracture..Risk and benefits of surgery exoplained, including but not limited to anesthesia risk, infection, blood loss, blood clot, malunion, etc. Questions answered. Telephone consult witness by his nurse. Leg marked. Qualifiers: Encounter type: initial encounter Fracture type: closed Fracture alignment: displaced Qualified Code(s): S72.141A - Displaced intertrochanteric fracture of right femur, initial encounter for closed fracture
[2017-04-12] MEDS ORDERED: SODIUM CHLORIDE 0.9% MINIBAG 100 ML IV ONE (09:27)
[2017-04-12] MEDS: ATENOLOL 25 MG TABLET PO SCH (09:27)
[2017-04-12] MEDS ORDERED: ceFAZolin 2 GM in SODIUM CHLORIDE 0.9% MINIBAG 100 ML IV SCH ×4 (10:00)
[2017-04-12] MEDS ORDERED: ceFAZolin 2 GM/50 ML 2 GM/50 ML BAG IV SCH (10:00)
[2017-04-12] MEDS ORDERED: BUDESONIDE 0.5 MG/2 ML NEB INH SCH (11:00)
[2017-04-12] MEDS: TAMSULOSIN 0.4 MG CAPSULE PO SCH (11:17)
[2017-04-12] MEDS ORDERED: BUPIVACAINE 0.25%-EPI 1:200000 PF 30 ML VIAL SUBQ ONE ×2 (12:53→13:39)
[2017-04-12] MEDS ORDERED: LACTATED RINGERS 1,000 ML IV ONE ×2 (13:41→14:40)
--- NOTE | 2017-04-12 13:54 | OPERATIVE REPORT ---
Operative Report - General Admit Date: 04/11/17 Procedure Date: 04/12/17 Planned Procedure: Short interTan nailing of right hip fracture Pre-Op Diagnosis: Closed right intertrochanteric hip fracture Procedure Performed: Closed reduction and short interTan nailing of right hip fracture Post Op Diagnosis: Same - Procedure Note Primary Surgeon: Katelin Neville Anesthesia Provider: Kamran Burnett CRNA Anesthesia Technique: Combo spinal/epidural (delete), General ET tube IV Fluids (mL): 800 Estimated Blood Loss (mL): 125 Complications: None
[2017-04-12] MEDS ORDERED: DOCUSATE SODIUM 100 MG CAPSULE PO PRN (13:55)
[2017-04-12] MEDS ORDERED: SODIUM CHLORIDE FLUSH 0.9% 10 ML SYRINGE IVP PRN (13:55)
[2017-04-12] MEDS ORDERED: MORPHINE 2 MG/ML CARPUJECT IVP PRN (13:55)
[2017-04-12] MEDS ORDERED: ACETAMINOPHEN 325 MG TABLET PO PRN (13:55)
[2017-04-12] MEDS ORDERED: SENNA 8.6 MG TABLET PO PRN (13:55)
[2017-04-12] MEDS ORDERED: PROCHLORPERAZINE 10 MG/2 ML VIAL IVP PRN (13:55)
[2017-04-12] MEDS ORDERED: ONDANSETRON 4 MG/2 ML VIAL IVP PRN (13:55)
[2017-04-12] MEDS ORDERED: ACETAMINOPHEN 1,000 MG/100 ML 100 ML IV PRN (13:55)
--- NOTE | 2017-04-12 14:23 | PROVIDER PROGRESS NOTE ---
Subjective - Prog Note Date Prog Note Date: 04/12/17 - Subjective Pt reports feeling: No change Subjective: pt state pain when he move his right leg. No chest pain, shortness of breath, or other complaints Current Medications - Current Medications Current Medications: Active Medications Acetaminophen (Tylenol) 1,000 mg PO Q8HR [facility] Last Admin: 04/12/17 06:01 Dose: 1,000 mg Acetaminophen (Tylenol) 650 - 975 mg PO Q4HR PRN PRN Reason: PAIN Acetaminophen/Hydrocodone Bitart ([place] 5/325) 1 tab PO Q4HR PRN PRN Reason: PAIN Albuterol () 2.5 mg INH DAILY PRN PRN Reason: Wheezing Aspirin ([place]) 325 mg PO BIDWM [facility] Atenolol (Tenormin) 50 mg PO DAILY [facility] Last Admin: 04/12/17 09:27 Dose: 50 mg Atorvastatin Calcium (Lipitor) 20 mg PO QPM [facility] Budesonide (Pulmicort) 0.5 mg INH RTBID [facility] Docusate Sodium (Colace 100mg Capsule) 100 mg PO BID PRN PRN Reason: Constipation Heparin Sodium (Porcine) () 2,500 unit SUBQ BID [facility] Sodium Chloride (Normal Saline 0.9%) 1,000 mls @ 85 mls/hr IV .[id number] [facility] Stop: 04/12/17 20:26 Last Admin: 04/12/17 08:56 Dose: 85 mls/hr Cefazolin Sodium/Dextrose (Ancef 2 Gm/50 Ml) 50 mls @ 100 mls/hr IV Q8H [facility] Stop: 04/12/17 22:29 Acetaminophen (Ofirmev) 100 mls @ 400 mls/hr IV Q6HR PRN PRN Reason: PAIN Sodium Chloride (Normal Saline 0.9%) 1,000 mls @ 100 mls/hr IV .Q10H [facility] Insulin Aspart (Novolog) 1 - 5 unit SUBQ 0800,1200,1700,2100 [facility] PRN Reason: Protocol Last Admin: 04/12/17 10:58 Dose: Not Given Ipratropium [place] (Atrovent) 0.5 mg INH Q8HR PRN PRN Reason: Dyspnea Lisinopril (Zestril) 2.5 mg PO DAILY [facility] Metoprolol Tartrate (Lopressor Inj) 2.5 mg IVP ONCE [facility] Stop: 04/13/17 03:00 Last Admin: 04/12/17 01:42 Dose: 2.5 mg Montelukast Sodium (Singulair) 10 mg PO QPM [facility] Morphine Sulfate (Morphine (Carpuject)) 4 mg IVP Q4HR PRN PRN Reason: Pain 8 to 10 Last Admin: 04/12/17 03:54 Dose: 4 mg Morphine Sulfate (Morphine (Carpuject)) 2 mg IVP Q2HR PRN PRN Reason: PAIN Ondansetron HCl (Zofran Inj) 4 mg IVP Q6HR PRN PRN Reason: Nausea / Vomiting Ondansetron HCl (Zofran Inj) 4 mg IVP Q6HR PRN PRN Reason: Nausea / Vomiting Oxycodone HCl (Roxicodone) 5 mg PO Q4HR PRN PRN Reason: Pain 5 to 7 Last Admin: 04/12/17 01:38 Dose: 5 mg Pantoprazole Sodium (Protonix) 40 mg PO QDAC [facility] Last Admin: 04/12/17 06:14 Dose: 40 mg Polyethylene Glycol (Miralax) 17 gm PO DAILY [facility] Last Admin: 04/12/17 08:51 Dose: Not Given Prochlorperazine Edisylate (Compazine Inj) 10 mg IVP Q6HR PRN PRN Reason: Nausea / Vomiting Prochlorperazine Edisylate (Compazine Inj) 10 mg IVP Q6HR PRN PRN Reason: Nausea / Vomiting Senna (Senokot) 17.2 mg PO Q12H PRN PRN Reason: Constipation Sodium Chloride (Normal Saline Flush 0.9%) 10 ml IVP PRN PRN PRN Reason: NEEDED PER PROVIDER ORDERS Sodium Chloride (Normal Saline Flush 0.9%) 10 ml IVP Q8HR [facility] Last Admin: 04/12/17 03:55 Dose: 10 ml Sodium Chloride (Normal Saline Flush 0.9%) 10 ml IVP Q8HR [facility] Sodium Chloride (Normal Saline Flush 0.9%) 10 ml IVP PRN PRN PRN Reason: NEEDED PER PROVIDER ORDERS Tamsulosin HCl (Flomax) 0.4 mg PO DAILY [facility] Last Admin: 04/12/17 11:17 Dose: Not Given metFORMIN [Glucophage] 500 mg PO DAILY 07/08/15 Atenolol 50 mg PO DAILY 07/24/16 Lisinopril [Prinivil] 2.5 mg PO DAILY 07/24/16 Montelukast [Singulair] 10 mg PO DAILY 07/24/16 Albuterol 2.5 mg INH DAILY PRN 04/12/17 Atorvastatin Calcium 20 mg PO DAILY 04/12/17 Budesonide 0.5 mg INH BID 04/12/17 Tamsulosin [Flomax] 0.4 mg PO DAILY 04/12/17 Objective - Vital Signs/Intake & Output Reviewed Vital Signs: Yes Vital Signs: Vital Signs x48h Temp Pulse Resp BP Pulse Ox 04/12/17 14:00 100 04/12/17 13:54 100 04/12/17 08:00 36.6 C 85 15 110/70 90 L Intake & Output: Intake & Output 04/09/17 04/10/17 04/11/17 04/12/17 23:59 23:59 23:59 23:59 Intake Total 100 Output Total 430 Balance -330 - Objective General Appearance: positive: No acute distress, Alert. negative: Lethargic Eyes Bilateral: positive: Normal inspection, PERRL, No lid inflammation, Conjunctivae nml ENT: positive: ENT inspection nml, Pharynx nml, No signs of dehydration. negative: Purulent nasal drainage, Pharyngeal erythema, Oral lesions Neck: positive: Nml inspection, Thyroid nml, No JVD, Trachea midline. negative : Thyromegaly, Lymphadenopathy (R), Lymphadenopathy (L), Stiff neck, Carotid bruit, Swelling/bruising, Tracheal deviation Respiratory: positive: Chest non-tender, No respiratory distress, Breath sounds nml. negative: Wheezes, Rales, Rhonchi Cardiovascular: positive: Regular rate & rhythm, No murmur, No gallop. negative : Irregularly irregular, Extrasystoles, Tachycardia, Systolic murmur, Diastolic murmur Peripheral Pulses: 2+ Radial (R), 2+ Radial (L), 2+ Dorsalis pedis (R), 2+ Dorsalis pedis (L) Abdomen: positive: Non-tender, No organomegaly, Nml bowel sounds, No distention. negative: Tenderness, Guarding, Rebound Back: positive: Nml inspection. negative: CVA tenderness (R), CVA tenderness (L ) Skin: positive: Color nml, No rash, Warm, Dry. negative: Cyanosis, Diaphoresis , Pallor Extremities: positive: Non-tender, Nml appearance. negative: Calf tenderness, Joint swelling, Elias's sign/cords Neurologic/Psychiatric: positive: Sensation nml, Mood/affect nml. negative: Sensory loss, Facial droop, Slurred/abnml speech, Depressed mood/affect - Lab Results Fish Bones: 04/12/17 07:50 04/12/17 07:50 Other Labs: Lab Results x24hrs 04/12/17 04/12/17 04/12/17 Range/Units 07:50 07:50 07:50 WBC 16.7 H (4.8-10.8) x10^3/uL RBC 3.09 L (4.70-6.10) 10^6/uL Hgb 10.7 L (14.0-18.0) g/dL Hct 31.6 L (42.0-52.0) % MCV 102.3 H (80.0-94.0) fL MCH 34.8 H (27.0-31.0) pg MCHC 34.0 (32.0-36.0) g/dL RDW 13.8 (12.0-15.0) % Plt Count 221 (130-450) 10^3/uL MPV 8.0 (7.4-11.4) fL Neut # 14.1 H (1.5-6.6) 10^3/uL Lymph # 1.0 L (1.5-3.5) 10^3/uL [place] # 1.6 H (0.0-1.0) 10^3/uL Eos # 0.0 (0.0-0.7) 10^3/uL Baso # 0.1 (0.0-0.1) 10^3/uL Absolute Nucleated RBC 0.01 x10^3/uL Nucleated RBC % 0.1 /100WBC Manual Slide Review Indicated WBC Morphology (NORMAL) Platelet Estimate NORMAL (130-450,000) (NORMAL) Platelet Morphology NORMAL APPEARANCE (NORMAL) RBC Morph Micro Appear NORMAL APPEARANCE (NORMAL) Sodium 130 L (135-145) mmol/L Potassium 4.5 (3.5-5.0) mmol/L Chloride 94 L (101-111) mmol/L Carbon Dioxide 26 (21-32) mmol/L Anion Gap 10.0 (6-13) BUN 19 (6-20) mg/dL Creatinine 0.4 L (0.6-1.2) mg/dL Estimated GFR (MDRD) 205 (>89) Glucose 136 H (70-100) mg/dL Glycated Hemoglobin 5.3 (4.6-6.2) % Estim Average Glucose 105 H (70-100) Calcium 8.5 (8.5-10.3) mg/dL Magnesium 1.5 L (1.7-2.8) mg/dL Total Bilirubin 0.5 (0.2-1.0) mg/dL AST 25 (10-42) IU/L ALT 16 (10-60) IU/L Alkaline Phosphatase 64 (42-121) IU/L Total Protein 6.6 L (6.7-8.2) g/dL Albumin 3.6 (3.2-5.5) g/dL Globulin 3.0 (2.1-4.2) g/dL Albumin/Globulin Ratio 1.2 (1.0-2.2) Assessment/Plan - Problem List (1) Intertrochanteric fracture of right hip Impression: consult with Orthopedics, pt will have surgery today morning will follow up surgeon pain control PT/OT Qualifiers: Encounter type: initial encounter Fracture type: closed Fracture alignment: displaced Qualified Code(s): S72.141A - Displaced intertrochanteric fracture of right femur, initial encounter for closed fracture (2) Hx of coronary artery disease Impression: pt denies chest pain, hemodynamic stable tele, vital monitor continue home meds (3) DM2 (diabetes mellitus, type 2) Impression: hold Metformin slide scale check A1C ACHS hypoglycemia protocol (4) HTN (hypertension) Impression: stable, resume home meds (5) Asthma Impression: pt denies Wheezing, shortness of breathing, continue home meds O2 supplement as needed (6) Hyponatremia Impression: Na 130 today, IVF with NS daily check lab and vital
[2017-04-12] MEDS: BUDESONIDE 0.5 MG/2 ML NEB INH SCH ×2 (15:10→20:15)
[2017-04-12] MEDS: ALBUTEROL NEB 2.5 MG/3 ML INH PRN ×2 (15:10→20:15)
[2017-04-12] MEDS: SODIUM CHLORIDE 0.9% 1,000 ML IV SCH (15:11)
--- NOTE | 2017-04-12 15:56 | OPERATIVE REPORT ---
DATE OF SERVICE: 04/12/2017 Physician: Toni Neville MD PREOPERATIVE DIAGNOSIS: Closed angulated right intertrochanteric hip fracture. POSTOPERATIVE DIAGNOSIS: Closed angulated right intertrochanteric hip fracture. PROCEDURE PERFORMED: Closed reduction and short InterTan nailing of right hip fracture. SURGEON: Toni Neville MD ANESTHESIA: General. DESCRIPTION OF PROCEDURE: The patient was taken to the operating room on the morning of 04/12/2017, where he was placed under general anesthetic through an endotracheal tube without any problems. He was then positioned supine onto the fracture table. His left unfractured extremity was then flexed at the hip and widely abducted and held in a well-leg martinez. We then placed the fractured right lower extremity into axial traction with the leg internally rotated about 20-25 degrees. Fluoroscopic views in AP and lateral projections showed good reduction of our fracture and good visualization of the hip joint. We then prepped and draped the lateral aspect of his hip for our procedure. Making an oblique incision proximal to the tip of the greater trochanter, we dissected down to the greater trochanter. This was where we placed the tip of the threaded guide pin. Fluoroscopic view showed good position and direction of our guide pin at the tip of the greater trochanter. We then advanced this pin using power down to the level of the lesser trochanter. Fluoroscopic view in the AP and lateral projections, showed a good position of our guide pin. We then reamed the proximal femur with a 60 mm channel reamer over our inserted guide pin with power. This was reamed to the level of the lesser trochanter. We then removed the reamer and the guide pin. We then placed the selected short InterTan nail on its insertion apparatus down the prepared proximal femur. The nail was 10 mm x 18 cm x 125 degree angle nail. Once we advanced the nail deep enough to allow for our guide pin into the femoral head, we then inserted our oval sleeve guide up against the lateral femoral cortex. After the trocar was inserted into our guide, we then advanced the threaded tip guidewire up to the proximal femur and femoral neck and femoral head to within a few millimeters of the subchondral bone. Its position was checked in AP and lateral projections with the fluoroscopy machine. We were satisfied with the depth of penetration and the position of our guide pin. Direct measuring device was then used to determine 100 mm subtrochanteric hip lag screw would be utilized. We then removed the trocar and used our cannulated reamer to ream over our inserted guide pin. We then inserted the selected subtrochanteric hip lag screw: 11 mm x 100 mm in length. We advanced the hip lag screw until it was within a few millimeters of the subchondral bone in the AP projection. It was satisfactory in lateral position as well. Fracture was impacted and in good position. Satisfied with this, we then removed the insertion apparatus for the hip lag screw. We then locked the set screw in the proximal end of our nail with the hinge screwdriver. Once the set screw was snugly advanced, we then backed off by 90 degrees. Next, a concentric silver and gold sleeve drill sleeve were then advanced through a small incision in the distal end of our alignment guide advancing to the lateral femoral cortex. We then used our calibrated drill to drill through the drill sleeves until we perforated both the lateral and medial femoral cortex through the distal end of our inserted nail. We determined a 35 mm length screw would be utilized. We then removed the drill and advanced the selected distal locking screw, which was 35 x 5 mm in diameter. After inserting the screw, the fluoroscopic views in the AP and lateral projection at the tip of the nail showed a bicortical screw through the distal end of our nail. X-rays of the hip again showed a good reduction of our fracture and satisfactory placement of our hardware in both AP and lateral projections. We then removed the drill sleeves and the alignment insertion apparatus from the nail. We then irrigated the wounds thoroughly with saline. Closed the proximal wound using a stitch of 0 Vicryl to approximate the fascia ray layer, followed by buried simple stitches of 2-0 Vicryl to approximate subcutaneous tissues of both the proximal and middle incision. Finally, skin incision was closed with skin mario. A total of 20 mL of 0.25% Marcaine with epinephrine used to provide surgical incision site anesthesia. We then dressed the wound with Xeroform gauze, 4 x 4's and Tegaderm dressings. The patient was awoken from his anesthetic and transferred off the fracture table to his bed and taken to the recovery room in satisfactory condition. ESTIMATED BLOOD LOSS: 125 mL REPLACEMENT: 100 mL crystalloid. INTRAOPERATIVE COMPLICATIONS: None. PLAN: The patient may be weightbearing as tolerated, right lower extremity. Will likely be transferred to the [facility] in approximately 2 days' time. TD: 04/12/2017 16:45
[2017-04-12] MEDS: HYDROcod/ACETAM 5/325 MG TABLET PO PRN (16:49)
[2017-04-12] MEDS: ASPIRIN 325 MG TABLET PO SCH (16:49)
--- NOTE | 2017-04-12 17:30 | XRAY Report ---
DATE OF SERVICE: INTRAOPERATIVE RIGHT HIP: 04/12/2017 CLINICAL INDICATION: Fracture fixation. FINDINGS: Intraoperative imaging demonstrates dynamic compression screw and short intramedullary timothy fixation of the right intertrochanteric fracture. 35 seconds of fluoroscopy time was provided to Dr. Neville; 3 spot images obtained. IMPRESSION: INTRAOPERATIVE IMAGING OF RIGHT HIP FRACTURE FIXATION. TD: 04/12/2017 18:30
[2017-04-12] MEDS: ceFAZolin 2 GM/50 ML 2 GM/50 ML BAG IV SCH (20:38)
[2017-04-12] MEDS: HEPARIN 5,000 UNIT/ML VIAL SUBQ SCH (20:39)
[2017-04-12] MEDS ORDERED: MONTELUKAST 10 MG TABLET PO SCH (21:00)
[2017-04-12] MEDS ORDERED: HEPARIN 5,000 UNIT/ML VIAL SUBQ SCH (21:00)
[2017-04-12] MEDS ORDERED: ATORVASTATIN 10 MG TABLET PO SCH (21:00)
[2017-04-13] MEDS: SODIUM CHLORIDE 0.9% 1,000 ML IV SCH ×4 (02:08→17:36)
[2017-04-13] MEDS: ceFAZolin 2 GM/50 ML 2 GM/50 ML BAG IV SCH (04:11)
[2017-04-13] MEDS: SODIUM CHLORIDE FLUSH 0.9% 10 ML SYRINGE IVP SCH ×2 (04:13→17:37)
[2017-04-13 05:47] LABS: BASOPHILS # (AUTO) 0.1 10^3/uL (0.0-0.1); BASOPHILS % (AUTO) 0.8 %; EOSINOPHILS % (AUTO) 0.2 %; HGB - HEMOGLOBIN 8.6 g/dL (14.0-18.0); LYMPHOCYTES # (AUTO) 0.9 10^3/uL (1.5-3.5); LYMPHOCYTES % (AUTO) 5.1 %; MEAN CORPUSCULAR HEMOGLOBIN 34.3 pg (27.0-31.0); MEAN CORPUSCULAR HGB CONC 32.4 g/dL (32.0-36.0); MEAN CORPUSCULAR VOLUME 105.9 fL (80.0-94.0); MEAN PLATELET VOLUME 8.8 fL (7.4-11.4); MONOCYTES # (AUTO) 1.4 10^3/uL (0.0-1.0); MONOCYTES % (AUTO) 8.3 %; NEUTROPHILS # (AUTO) 14.7 10^3/uL (1.5-6.6); NEUTROPHILS % (AUTO) 85.6 %; PLT - PLATELET COUNT 171 10^3/uL (130-450); RED BLOOD COUNT 2.52 10^6/uL (4.70-6.10); WHITE BLOOD COUNT 17.1 x10^3/uL (4.8-10.8)
[2017-04-13 06:00] LABS: ALBUMIN/GLOBULIN RATIO 1.1 (1.0-2.2); BILIRUBIN,TOTAL 0.6 mg/dL (0.2-1.0); CREATININE 0.3 mg/dL (0.6-1.2); TOTAL PROTEIN 5.8 g/dL (6.7-8.2)
[2017-04-13] MEDS: ALBUTEROL NEB 2.5 MG/3 ML INH PRN (07:25)
[2017-04-13] MEDS: BUDESONIDE 0.5 MG/2 ML NEB INH SCH (07:25)
[2017-04-13] MEDS: INSULIN ASPART 300 UNIT/3 ML PEN SUBQ SCH ×3 (08:12→17:50)
[2017-04-13] MEDS: TAMSULOSIN 0.4 MG CAPSULE PO SCH (08:25)
[2017-04-13] MEDS: ASPIRIN 325 MG TABLET PO SCH ×2 (08:26→17:44)
[2017-04-13] MEDS: ATENOLOL 25 MG TABLET PO SCH (08:26)
[2017-04-13] MEDS: HYDROcod/ACETAM 5/325 MG TABLET PO PRN (08:27)
[2017-04-13] MEDS: POLYETHYLENE GLYCOL 3350 17 GM PACKET PO SCH (08:28)
[2017-04-13] MEDS: PANTOPRAZOLE 40 MG TABLET PO SCH (08:28)
[2017-04-13] MEDS: HEPARIN 5,000 UNIT/ML VIAL SUBQ SCH (08:37)
[2017-04-13] MEDS ORDERED: LISINOPRIL 5 MG TABLET PO SCH (09:00)
[2017-04-13 09:37] LABS: HGB - HEMOGLOBIN 8.1 g/dL (14.0-18.0)
[2017-04-13] MEDS ORDERED: MAGNESIUM SULFATE 2 GRAM 2 GM/50 ML BAG IV ONE ×2 (11:00→13:48)
[2017-04-13] MEDS ORDERED: SODIUM CHLORIDE 0.9% 500 ML IV ONE ×2 (12:04→12:15)
[2017-04-13] MEDS ORDERED: KETAMINE 500 MG/10 ML VIAL IVP ONE (13:00)
[2017-04-13] MEDS ORDERED: PHENYLEPHRINE 50 MG/5 ML VIAL IV ONE (13:00)
[2017-04-13] MEDS ORDERED: AMIODARONE 360 MG/200 ML IV ONE (13:00)
[2017-04-13] MEDS ORDERED: fentaNYL 100 MCG/2 ML VIAL IVP ONE (13:00)
[2017-04-13] MEDS ORDERED: NORepinephrine 8 MG in DEXTROSE 5% 250ML IV SCH (13:00)
[2017-04-13] MEDS ORDERED: PROPOFOL 200 MG/20 ML VIAL IVP ONE (13:00)
--- NOTE | 2017-04-13 13:33 | PROVIDER PROGRESS NOTE ---
Hospitalist Cross-cover Note - Cross-Cover Note Cross-Cover Note: pt's family came to visit pt at this morning. The family member include two sons , and pt's . we discussed pt's code status. Pt's family all request pt continue to have full code. Nurse report pt had very poor nutrition, only a few bite for a meal, less than 25% of the meal. I discussed with pt's family about pt's poor nutrition status. Family request pt to have Ensure. Nurse gave pt Ensure at the rise of bed, in the front of pt's family. There is no cough or aspiration reported. Family state pt drunk about half of Ensure. Pt is alert and talked with his family at the time when pt drunk the Ensure. Pt was reported to have hypotensive, SBP at 61. Rapid response was initiated. Pt was given 1 liter Bolus of NS, and 1 mg Epinephrine. SBP then rise to 100. But SBP drop again to 74. Rapid response was called again. Dr. Brenda Bolanos and ER provider Dr Cancino present at the pt's bedside. Dr. Brenda Bolanos state she will take care of pt. Pt was transferred to ICU.
[2017-04-13] MEDS ORDERED: AMIODARONE 360 MG/200 ML 200 ML IV ONE (13:45)
--- NOTE | 2017-04-13 13:51 | XRAY Preliminary Report ---
Exam: XR CHEST FOR LINE PLACEMENT IMPRESSION: 1. Tip of the right jugular line now at the cavoatrial junction. 2. Stable virtually complete opacification left hemithorax which has progressed since an exam earlier today at 1223. 3. Stable right lung interstitial prominence consistent with interstitial edema. [facility] SITE ID: [id number]
--- NOTE | 2017-04-13 13:55 | XRAY Preliminary Report ---
Exam: XR CHEST FOR LINE PLACEMENT IMPRESSION: 1. Recommend 10.5 cm partial withdrawal of the right jugular line such that then the tip would be at the cavoatrial junction. 2. Increasing atelectasis and/or consolidation on the left with small left pleural effusion. 3. Increasing interstitial prominence right lung consistent with interstitial edema. [facility] SITE ID: [id number]
--- NOTE | 2017-04-13 14:00 | XRAY Report ---
EXAM: CHEST RADIOGRAPHY EXAM DATE: 04/13/2017 01:35 PM. CLINICAL HISTORY: Central line placement. Respiratory distress. COMPARISON: Earlier today at 1318. TECHNIQUE: 1 view. FINDINGS: Lungs/Pleura: Stable virtually complete opacification left hemithorax. Stable moderate interstitial prominence throughout the normal volume right lung. No pneumothorax. Mediastinum: Stable moderate [id number] mediastinal shift indicating a component of atelectasis to the left lung opacification. Heart is normal caliber, remote sternotomy. Partial interval withdrawal of the right jugular line with the tip now at the cavoatrial junction. Other: None. IMPRESSION: 1. Tip of the right jugular line now at the cavoatrial junction. 2. Stable virtually complete opacification left hemithorax which has progressed since an exam earlier today at 1223. 3. Stable right lung interstitial prominence consistent with interstitial edema. [facility] Referring Provider Line: [phone] SITE ID: [id number]
--- NOTE | 2017-04-13 14:00 | XRAY Report ---
EXAM: CHEST RADIOGRAPHY EXAM DATE: 04/13/2017 01:35 PM. CLINICAL HISTORY: Central line placement. Respiratory distress. COMPARISON: Earlier today at 1223. TECHNIQUE: 1 view. FINDINGS: Lungs/Pleura: Increasing opacification left hemithorax, now marked, relatively sparing the left lung apex. Probable small left pleural effusion. Increasing interstitial prominence throughout the normal caliber right lung. No pneumothorax. Mediastinum: Increasing moderate right to left mediastinal shift indicating component of atelectasis to the left lung. Heart is normal caliber. Prior sternotomy. Interval placement of a right jugular line with the tip in the right atrium, at the level of the irasema diaphragm. Other: None. IMPRESSION: 1. Recommend 10.5 cm partial withdrawal of the right jugular line such that then the tip would be at the cavoatrial junction. 2. Increasing atelectasis and/or consolidation on the left with small left pleural effusion. 3. Increasing interstitial prominence right lung consistent with interstitial edema. [facility] Referring Provider Line: [phone] SITE ID: [id number]
[2017-04-13] MEDS ORDERED: IOPAMIDOL-300 100 ML VIAL ONE (14:18)
[2017-04-13] MEDS ORDERED: AMIODARONE 150 MG/3 ML VIAL IVP ONE (14:45)
[2017-04-13] MEDS ORDERED: AMIODARONE 360 MG/200 ML 200 ML IV SCH ×2 (14:45→19:00)
[2017-04-13] MEDS ORDERED: EPINEPHrine ABBOJECT 1 MG/10 ML SYRINGE IVP ONE (14:45)
[2017-04-13 15:39] LABS: ABG HCO3 21.8 mmol/L (22.0-26.0); ABG PCO2 37 mmHg (34-45); ABG PH 7.39 (7.35-7.45); ABG PO2 117 mmHg (80-100)
[2017-04-13 15:40] LABS: ABG BASE EXCESS -2.8 mmol/L (-2.0-3.0); ABG OXYGEN SATURATION 98 % (94-98); ALLEN TEST POSITIVE
[2017-04-13] MEDS ORDERED: IOPAMIDOL-300 100 ML VIAL IVP ONE (16:03)
--- NOTE | 2017-04-13 16:29 | CT Preliminary Report ---
Exam: CT CHEST ANGIO (PE) IMPRESSION: 1. No evidence of pulmonary emboli. 2. Complete atelectasis left lung, due to fluid or other debris consistent with aspiration, in the le ft airway. 3. Small right and moderate left pleural effusions. [facility] SITE ID: [id number]
--- NOTE | 2017-04-13 16:38 | CT Report ---
EXAM: CT ANGIOGRAM CHEST EXAM DATE: 04/13/2017 04:03 PM. CLINICAL HISTORY: Right hip surgery yesterday. Multiple codes today. Respiratory distress. Abnormal c hest x-ray, ventricular tachycardia and atrial fibrillation. COMPARISON: None. TECHNIQUE: Routine helical imaging was performed through the chest in the pulmonary arterial phase. I V Contrast: 80 mL Isovue 300. Reconstructions: Coronal 3-D MIP reconstructions.Sagittal and coronal. In accordance with CT protocol optimization, one or more of the following dose reduction techniques w ere utilized for this exam: automated exposure control, adjustment of mA and/or KV based on patient s ize, or use of iterative reconstructive technique. FINDINGS: Pulmonary Arteries: Diagnostic quality: Adequate through the segmental arteries. No evidence for acute or chronic pulmona ry emboli. RV/LV is within normal limits. There is no interventricular septal bowing. There is no reflux of cont rast material in the IVC. Lungs/Pleura: Very small right pleural effusion. Complete atelectasis of the left lung. Fluid or debris in the majority of the left airways with abrupt cut off distal aspect of the left bro nchus. Moderate left pleural effusion. No cavitating lesion or air-fluid level. Mediastinum: Heart is of normal caliber. Remote sternotomy. No significant pericardial fluid. Extensi ve coronary artery calcifications. Shotty mediastinal adenopathy. Calcified hilar lymph nodes. Esophagus of normal caliber. Moderate right to left mediastinal shift. Thoracic Aorta: Unremarkable. Upper Abdomen: Unremarkable. Other: Old moderate wedging T6, old mild wedging T7, old moderate to marked wedging T8. Multiple old left rib fractures. IMPRESSION: 1. No evidence of pulmonary emboli. 2. Complete atelectasis left lung, due to fluid or other debris consistent with aspiration, in the le ft airway. 3. Small right and moderate left pleural effusions. [facility] Referring Provider Line: [phone] SITE ID: [id number]
[2017-04-13 19:06] VITALS: BP 89/51
--- NOTE | 2017-04-13 19:57 | XRAY Report ---
DATE OF SERVICE: 04/13/2017 FRONTAL CHEST: 04/13/2017 CLINICAL INDICATION: Code blue. COMPARISON: 04/11/2017 Frontal view of the chest demonstrates stable changes of cardiac surgery. Multiple new rib fractures are present. Left atelectasis is seen. Hiatal hernia is stable. No pneumothorax. IMPRESSION: Left atelectasis. No evidence of pneumothorax. TD: 04/13/2017 20:56
--- NOTE | 2017-04-13 20:07 | Discharge Plan ---
Discharge Plan Disposition: 02 Transfer Acute Care Hosp Condition: Critical No Smoking: If you smoke, Please STOP! Call for help. Follow-up with: Daljit Ch MD [Primary Care Provider] -
--- NOTE | 2017-04-13 20:55 | XRAY Report ---
DATE OF SERVICE: FRONTAL CHEST: 04/13/2017 CLINICAL INDICATION: Line repositioning. Frontal view of the chest demonstrates the right jugular central venous catheter now terminating in the distal superior vena cava. There is continued increase in collapse of the left lung. The right lung remains clear. No pneumothorax is seen. IMPRESSION: Continued increase in collapse of the left lung. Right jugular central venous catheter terminating in the distal superior vena cava. TD: 04/13/2017 21:54
--- NOTE | 2017-04-13 23:20 | PROVIDER PROGRESS NOTE ---
Assessment/Plan - Problem List (1) Closed right hip fracture Qualifiers: Encounter type: subsequent encounter Assessment/Plan: Pt had successful R hip surgery yesterday, has not been OOB and upright in chair or any weight bearing yet. Physical Therapy will begin eventually, after hemodynamic instability addressed (see below) (2) DM2 (diabetes mellitus, type 2) Assessment/Plan: Pt on diabetic diet and appropriate Insulin coverage. Continue plan and meds (3) History of coronary artery disease Assessment/Plan: No c/o chest pain, but Pt is a diabetic and could get silent ischemia without angina. Due to hyptension and rhythm disturbance (see below), will cycle troponin blood tests, check Echo and transfer to ICU. (4) Hypotension Assessment/Plan: At approx. 11:00am, a Rapid Response was called due to hypotension and HAIR TINTER ordered an amp of Epi. At approx. 11:15am another Rapid Response was called and I took over patient's care: Low BP of 60 palpable, no palpable femoral pulse. Crash cart brought in and telemetry on defibrillator showed Afib with RVR and PVCs. I ordered saline iv wide open and a bolus of Amiodarone. Pt in [facility]. Patient was pale, lethargic but responded to answers and said he had no symptoms. At approx. 11:40am another Rapid Response was called: Pt had a long run of non-sustained monomorphic VTach. Pt felt the same and BP 70 palpable, HR 120's in Afib. Pt in [facility]. I ordered Amiodarone drip at 1 mg/min and transfer of patient to ICU for Levophed. Noon: Levophed started and BP 100 systolic. STAT CXR done and shows a (new) complete white-out of his L lung. STAT bedside Echo done and showed dilated RV with depressed RV function and normal LV size with low-normal LV function, no cardiac tamponade. I reviewed his old records: In the OR yesterday, BP dropped several times to 60 systolic for the Anesthesia HAIR TINTER. Pt had a CABG 17 years ago and has not seen a Container Packer Operator in F/U in all those 17 years, has not had a stress test or another coronary angio after the CABG. he was cleared for Orthopedic surgery yesterday based on EKG and lack of cardiac symptoms. 1215pm: Pt converts to NSR then goes into junction I contact al rhythm, rate 70. I order a decrease of the Amio drip to 0.5 mg/min now, not to wait 6 hours. Patient gets a STAT CT of chest: the entire L lung is collapsed, there is slight mediastinal shift and there is a mass totally obstructing the L bronchus , which is probably food. I call several locations and contact a tertiary center to accept patient in transfer for a bronchoscopy and management of his hemodynamic and rhythm instability. The patient is transferred by airlift to [facility]. (Critical Care time: 60 min.) - Lab Result Fish Bone Diagrams: 04/13/17 09:18 04/13/17 05:33 - Additional Planning My Orders: My Active Orders 04/13/17 14:00 Echo Transthoracic Complete [ECHO] Stat 04/13/17 20:06 Discharge [RC] .ONCE Subjective - Subjective Patient Reports: Other (Lethargic) Nursing Reports: Other (Low BP and rapid response called x3) Objective Vital Signs: Vital Signs - 24 hr 04/13/17 04/13/17 04/13/17 00:39 06:00 07:25 Temperature 36.8 C 37.0 C Heart Rate 104 H Heart Rate [ 83 87 Brachial] Respiratory 20 18 20 Rate Blood Pressure 97/45 L 107/54 L [Right Brachial artery] O2 Saturation 89 L 96 04/13/17 04/13/17 04/13/17 08:09 08:30 15:00 Temperature 36.6 C 36.6 C Heart Rate Heart Rate [ 84 65 Brachial] Respiratory 16 12 Rate Blood Pressure 155/77 H 91/75 [Right Brachial artery] O2 Saturation 95 94 100 04/13/17 04/13/17 04/13/17 16:00 17:00 18:00 Temperature 36.6 C Heart Rate Heart Rate [ 74 84 77 Brachial] Respiratory 14 14 16 Rate Blood Pressure 97/55 L 151/65 H [Right Brachial artery] O2 Saturation 100 97 100 04/13/17 19:00 Temperature Heart Rate Heart Rate [ 67 Brachial] Respiratory 15 Rate Blood Pressure 89/51 L [Right Brachial artery] O2 Saturation 99 Oxygen O2 Source Nasal cannula I&O (Last 24 Hrs): Intake and Output Totals x24h 04/11/17 04/12/17 04/13/17 23:59 23:59 23:59 Intake Total 831.25 2170.730 Output Total 680 870 Balance 151.25 1300.730 General: Other (Pale, lethargic, not SOB in supine position) HEENT: Other (dry mucosa) Neck: Supple Respiratory: Breath sounds nml Abdomen: Soft Extremities: Other (mottled skin, cool to touch) - Results Results: Laboratory Results WBC 17.1 x10^3/uL (4.8-10.8) H 04/13/17 05:33 RBC 2.52 10^6/uL (4.70-6.10) L 04/13/17 05:33 Hgb 8.1 g/dL (14.0-18.0) L 04/13/17 09:18 Hct 23.8 % (42.0-52.0) L 04/13/17 09:18 MCV 105.9 fL (80.0-94.0) H 04/13/17 05:33 MCH 34.3 pg (27.0-31.0) H 04/13/17 05:33 MCHC 32.4 g/dL (32.0-36.0) 04/13/17 05:33 RDW 14.0 % (12.0-15.0) 04/13/17 05:33 Plt Count 171 10^3/uL (130-450) 04/13/17 05:33 MPV 8.8 fL (7.4-11.4) 04/13/17 05:33 Neut # 14.7 10^3/uL (1.5-6.6) H 04/13/17 05:33 Lymph # 0.9 10^3/uL (1.5-3.5) L 04/13/17 05:33 Saline # 1.4 10^3/uL (0.0-1.0) H 04/13/17 05:33 Eos # 0.0 10^3/uL (0.0-0.7) 04/13/17 05:33 Baso # 0.1 10^3/uL (0.0-0.1) 04/13/17 05:33 Absolute Nucleated RBC 0.00 x10^3/uL 04/13/17 05:33 Nucleated RBC % 0.0 /100WBC 04/13/17 05:33 Manual Slide Review Indicated 04/12/17 07:50 WBC Morphology (NORMAL) 04/12/17 07:50 Platelet Estimate NORMAL (130-450,000) (NORMAL) 04/12/17 07:50 Platelet Morphology NORMAL APPEARANCE (NORMAL) 04/12/17 07:50 RBC Morph Micro Appear NORMAL APPEARANCE (NORMAL) 04/12/17 07:50 Bld Gas Analysis Time 1530 04/13/17 15:30 Sample Site LEFT RADIAL 04/13/17 15:30 ABG pH 7.39 (7.35-7.45) 04/13/17 15:30 ABG pCO2 37 mmHg (34-45) 04/13/17 15:30 ABG pO2 117 mmHg (80-100) H 04/13/17 15:30 ABG HCO3 21.8 mmol/L (22.0-26.0) L 04/13/17 15:30 ABG Total CO2 23.0 MMOL/L (21.0-29.0) 04/13/17 15:30 ABG O2 Saturation 98 % (94-98) 04/13/17 15:30 ABG Oximetry Spot Check 100 % 04/13/17 15:30 ABG Base Excess -2.8 mmol/L (-2.0-3.0) L 04/13/17 15:30 Jordon Test POSITIVE 04/13/17 15:30 O2 Delivery Device NON REBREATHER MASK 04/13/17 15:30 O2 Liters/Min 10.00 LPM 04/13/17 15:30 Sodium 131 mmol/L (135-145) L 04/13/17 05:33 Potassium 4.2 mmol/L (3.5-5.0) 04/13/17 05:33 Chloride 99 mmol/L (101-111) L 04/13/17 05:33 Carbon Dioxide 26 mmol/L (21-32) 04/13/17 05:33 Anion Gap 6.0 (6-13) 04/13/17 05:33 BUN 13 mg/dL (6-20) 04/13/17 05:33 Creatinine 0.3 mg/dL (0.6-1.2) L 04/13/17 05:33 Estimated GFR (MDRD) 286 (>89) 04/13/17 05:33 Glucose 112 mg/dL (70-100) H 04/13/17 05:33 Glycated Hemoglobin 5.3 % (4.6-6.2) 04/12/17 07:50 Estim Average Glucose 105 (70-100) H 04/12/17 07:50 Lactic Acid 2.9 mmol/L (0.5-2.2) H 04/13/17 14:14 Calcium 8.0 mg/dL (8.5-10.3) L 04/13/17 05:33 Magnesium 1.6 mg/dL (1.7-2.8) L 04/13/17 13:05 Total Bilirubin 0.6 mg/dL (0.2-1.0) 04/13/17 05:33 AST 38 IU/L (10-42) 04/13/17 05:33 ALT 16 IU/L (10-60) 04/13/17 05:33 Alkaline Phosphatase 48 IU/L (42-121) 04/13/17 05:33 Troponin I 0.26 ng/mL (<0.49) 04/13/17 12:15 B-Natriuretic Peptide 524 pg/mL (5-100) H 04/13/17 12:15 Total Protein 5.8 g/dL (6.7-8.2) L 04/13/17 05:33 Albumin 3.0 g/dL (3.2-5.5) L 04/13/17 05:33 Globulin 2.8 g/dL (2.1-4.2) 04/13/17 05:33 Albumin/Globulin Ratio 1.1 (1.0-2.2) 04/13/17 05:33 Lipase 39 U/L (22-51) 04/11/17 20:41 Urine Color YELLOW 04/11/17 20:50 Urine Clarity CLEAR (CLEAR) 04/11/17 20:50 Urine pH 6.0 PH (5.0-7.5) 04/11/17 20:50 Ur Specific [place] 1.020 (1.002-1.030) 04/11/17 20:50 Urine Protein NEGATIVE mg/dL (NEGATIVE) 04/11/17 20:50 Urine Glucose (UA) NEGATIVE mg/dL (NEGATIVE) 04/11/17 20:50 Urine Ketones TRACE mg/dL (NEGATIVE) 04/11/17 20:50 Urine Occult Blood NEGATIVE (NEGATIVE) 04/11/17 20:50 Urine Nitrite NEGATIVE (NEGATIVE) 04/11/17 20:50 Urine Bilirubin NEGATIVE (NEGATIVE) 04/11/17 20:50 Urine Urobilinogen 1 (NORMAL) E.U./dL (NORMAL) 04/11/17 20:50 Ur Leukocyte Esterase NEGATIVE (NEGATIVE) 04/11/17 20:50 Ur Microscopic Review NOT INDICATED 04/11/17 20:50 Urine Culture Comments NOT INDICATED 04/11/17 20:50 Blood Type O POSITIVE 04/11/17 22:09 Blood Type Recheck O POSITIVE 04/11/17 20:55 Antibody Screen NEGATIVE 04/11/17 22:09
--- NOTE | 2017-05-04 03:34 | DISCHARGE SUMMARY ---
Physician: Brenda Hanna MD DATE OF ADMISSION: 04/11/2017 DATE OF DISCHARGE/TRANSFER: 04/13/2017 This is an 81-year-old, white male with a history of noninsulin dependent diabetes, hypertension, asthma, coronary artery disease with remote CABG, cachexia, who usually uses a cane to walk, was getting up from the couch to go to the bathroom and lost his balance, tripped and fell backwards on his right side and broke his right hip. He was brought to the emergency room and admitted for orthopedic management of the hip fracture. HOSPITAL COURSE AND DISCHARGE DIAGNOSES 1. Hypotension. On postop day #2, the patient had a rapid response called because of systolic blood pressure of 60. He received saline wide open and 1 amp of epinephrine ordered by the nurse practitioner. Approximately 15 minutes later, another rapid response was called and blood pressure was 60-70 palpable, and the telemetry on the crash cart monitor showed that he was in new atrial fibrillation with a rapid rate of 140-170 with frequent PVCs. He was again given saline wide open and a bolus of IV amiodarone, put in Trendelenburg. He was awake, but lethargic, and said he had no symptoms. Approximately 30 minutes later another rapid response was called, in that the blood pressure was still hypotensive at 70 palpable and he had a witnessed long run of nonsustained monomorphic V-tach. The heart rate was now 120, in atrial fibrillation. He was given amiodarone drip begun at 1 mg per minute and transferred to the ICU, and started on Levophed. The Levophed provided improved blood pressure to 100 systolic. A chest x-ray , EKG and Echo were done stat. The chest x-ray showed a new complete white-out of his left lung. The bedside Echo showed a dilated right ventricle with depressed right ventricular function, normal LV size with low normal LV function, no evidence of pericardial effusion to suggest cardiac tamponade. The patient then underwent a stat CT scan of his chest, which showed that the entire left lung had collapsed and there was slight mediastinal shift, and there was a mass totally obstructing the left bronchus, probably food. The patient converted to normal sinus rhythm at this point, but subsequently went into junctional rhythm at a rate of 70, and therefore his amiodarone drip was decreased to 0.5 mg per minute. Several hospitals were called to transfer this patient to a tertiary care center to an humid system operator and for bronchoscopy, which is not available at this critical access hospital. He was accepted in transfer and airlifted to [facility]. 2. Ventricular tachycardia. This was seen during hypotension and after the amp of epinephrine had been dosed. The amiodarone bolus and drip suppressed further ventricular ectopy. 3. Atrial fibrillation with rapid ventricular rate, new onset. The patient did not feel racing or palpitations. The new rhythm may have been a result of an acute IN or the amp of epinephrine that had been administered for treatment of hypotension. The patient did convert to sinus rhythm on the amiodarone IV drip. 4. Junctional rhythm. This rhythm abnormality may have been a result of coronary ischemia of the conduction system or from amiodarone dosing. For this reason, his amiodarone planned 6-hour infusion at 1 mg per minute was decreased immediately to 0.5 mg per minute. 5. Left lung collapse with probable complete obstruction by food in the left bronchus. The patient had minimal complaints of shortness of breath, was saturating well just on supplemental oxygen of 2 liters nasal cannula, at 99%. He required transfer to a tertiary care center for bronchoscopy for retrieval of the obstructed left bronchus and was accepted in transfer as described above. 6. Status post hip fracture with successful surgery, transferred on postop day #1. Review of his intraoperative course showed that he had several drops of blood pressure to 60 systolic for the edge polisher. The patient had minimal hip pain post-op, but had not yet started aggressive physical therapy at the time of the transfer. 7. Anemia. And low MCV was noted on his CBC. Review of old labs showed this was probably his baseline hemoglobin, which was 11.9 at admission, and fell to 8.1 on postop day #1, despite a minimal estimated blood loss. 8. History of coronary artery disease with bypass surgery. The patient reported to me on postop day #1, when I took over his care, that he had bypass surgery approximately 17 years ago and had not seen a icing coater in followup in all those 17 years, and had no further stress testing or another coronary angiogram after the bypass. He had been cleared for orthopedic surgery on admission, based on his EKG and lack of cardiac symptoms. The patient's blood tests done after his rapid responses showed one troponin value of 0.26 and then he was transferred. His pre-op troponin was less than 0.04. The patient had no chest pain while here; however, he is a diabetic and may not develop symptoms of angina. 9. Hypertension. The patient had a hold of his home blood pressure medications preoperatively. It was given on postop day #1, which may have added to the hypotension. 10. Asthma. The patient was maintained on his preadmission inhalers and had no complaints of shortness of breath. 11. Noninsulin-dependent diabetes. The patient was on Metformin at home, which was on hold during this entire admission. He was on a diabetic diet and sliding scale insulin coverage, and hypoglycemia protocol had been ordered. His HbA1c was 5.3 on admission. ALLERGIES: NONE. MEDICATIONS AT THE TIME OF TRANSFER 1. Amiodarone 0.5 mg per minute IV drip. 2. Levophed at a titrating dose to maintain a mean arterial pressure of 70. 3. Albuterol inhaler p.r.n. 4. Atenolol 50 mg p.o. daily was scheduled. 5. Lipitor 20 mg p.o. at bedtime. 6. Budesonide inhaler b.i.d. 7. Lisinopril 2.5 mg daily. 8. Metformin 500 mg daily was on hold through this admission. 9. Singulair 10 mg p.o. daily. 10. Flomax 0.4 mg p.o. daily. CONDITION AT TRANSFER: Critical. PHYSICAL EXAMINATION AT TRANSFER VITAL SIGNS: Blood pressure 89/51 on pressor support and saline hydration, pulse of 67 in junctional rhythm, respiratory rate 15, O2 saturation 99% on 2 liters nasal cannula. HEENT: Showed dry oral mucosa, pallor, temporal wasting. NECK: Without JVD in a supine position. No carotid bruits. CHEST: Diminished breath sounds on the left, clear on the right. HEART: Sounds distant. ABDOMEN: Soft with decreased bowel sounds. EXTREMITIES: No clubbing, cyanosis or edema. There was tenting of the skin, mildly. The right hip was postop. NEUROLOGIC: Grossly intact. CODE STATUS: FULL CODE. LABORATORIES AND IMAGING: Reviewed and summarized above. FOLLOWUP: This is to be determined after his stay at [facility]. TIME REQUIRED TO COMPLETE THIS ENTIRE DISCHARGE: 80 minutes. TD: 05/04/2017 03:33 MTDKimberley
== END 2017-04-13 20:10 | disposition short-term general hospital (02) | DRG 481 ==
LOC: EDUNIT# → ED 20:08 → MS2 23:06 → ED 23:31 → ICU 04-13 13:34
PROVIDERS: ADMIT Internal Medicine; ATTEND Internal Medicine
PROC: 0QS636Z Reposition Right Upper Femur with Intramedullary Internal Fixation Device, Percutaneous Approach (ICD-10-PCS; principal; 2017-04-12 09:30)
PROC: 02HV33Z Insertion of Infusion Device into Superior Vena Cava, Percutaneous Approach (ICD-10-PCS; 2017-04-13)
DX: S72.141A Displaced intertrochanteric fracture of right femur, initial encounter for closed fracture (principal); E46 Unspecified protein-calorie malnutrition; Y93.01 Activity, walking, marching and hiking; Z68.1 Body mass index [BMI] 19.9 or less, adult; E87.1 Hypo-osmolality and hyponatremia; I47.2 Ventricular tachycardia; T17.520A Food in bronchus causing asphyxiation, initial encounter; J98.11 Atelectasis; W01.0XXA Fall on same level from slipping, tripping and stumbling without subsequent striking against object, initial encounter; Y92.009 Unspecified place in unspecified non-institutional (private) residence as the place of occurrence of the external cause; Y92.230 Patient room in hospital as the place of occurrence of the external cause; I48.91 Unspecified atrial fibrillation; I95.9 Hypotension, unspecified; I25.10 Atherosclerotic heart disease of native coronary artery without angina pectoris; M16.0 Bilateral primary osteoarthritis of hip; J44.9 Chronic obstructive pulmonary disease, unspecified; E11.9 Type 2 diabetes mellitus without complications; I10 Essential (primary) hypertension; D50.9 Iron deficiency anemia, unspecified; I49.3 Ventricular premature depolarization; K44.9 Diaphragmatic hernia without obstruction or gangrene; G30.9 Alzheimer's disease, unspecified; F02.80 Dementia in other diseases classified elsewhere, unspecified severity, without behavioral disturbance, psychotic disturbance, mood disturbance, and anxiety; Z91.81 History of falling; Z79.84 Long term (current) use of oral hypoglycemic drugs; Z95.1 Presence of aortocoronary bypass graft
CPT/HCPCS: 36415; 36600; 51798; 71045; 71275; 80053; 81001; 81003; 82803; 83036; 83605; 83690; 83735; 83880; 84484; 85014; 85018; 85025; 86850; 86900; 86901; 87086; 87150; 93005; 93306; 94640; 96374; 99285

== ENCOUNTER 2017-05-03 16:00 | Outpatient (CLI) | payer MEDICARE ==
[2017-05-03 17:11] LABS: BASOPHILS # (AUTO) 0.1 10^3/uL (0.0-0.1); BASOPHILS % (AUTO) 1.2 %; EOSINOPHILS # (AUTO) 0.2 10^3/uL (0.0-0.7); EOSINOPHILS % (AUTO) 2.7 %; HGB - HEMOGLOBIN 10.2 g/dL (14.0-18.0); LYMPHOCYTES # (AUTO) 1.5 10^3/uL (1.5-3.5); LYMPHOCYTES % (AUTO) 21.9 %; MEAN CORPUSCULAR HEMOGLOBIN 34.1 pg (27.0-31.0); MEAN CORPUSCULAR HGB CONC 34.4 g/dL (32.0-36.0); MEAN PLATELET VOLUME 7.8 fL (7.4-11.4); MONOCYTES % (AUTO) 14.9 %; NEUTROPHILS # (AUTO) 3.9 10^3/uL (1.5-6.6); NEUTROPHILS % (AUTO) 59.3 %; PLT - PLATELET COUNT 405 10^3/uL (130-450); RED BLOOD COUNT 2.99 10^6/uL (4.70-6.10); RED CELL DISTRIBUTION WIDTH 15.9 % (12.0-15.0); WHITE BLOOD COUNT 6.7 x10^3/uL (4.8-10.8)
[2017-05-03 17:32] LABS: ALBUMIN 3.2 g/dL (3.2-5.5); ALBUMIN/GLOBULIN RATIO 0.9 (1.0-2.2); BILIRUBIN,TOTAL 0.4 mg/dL (0.2-1.0); CALCIUM 8.9 mg/dL (8.5-10.3); CREATININE 0.5 mg/dL (0.6-1.2); TOTAL PROTEIN 6.9 g/dL (6.7-8.2)
== END 2017-05-03 16:01 | disposition home or self-care (01) ==
LOC: LAB.R 16:00
DX: D62 Acute posthemorrhagic anemia (principal); E11.69 Type 2 diabetes mellitus with other specified complication
CPT/HCPCS: 80053; 85025

== ENCOUNTER 2017-05-04 07:28 | Outpatient (CLI) | payer MEDICARE | END 2017-05-04 07:29 | disposition critical access hospital (66) | LOC: EMS 07:28 | PROVIDERS: ATTEND Surgery | DX: M54.9 Dorsalgia, unspecified (principal); W06.XXXA Fall from bed, initial encounter; Y92.122 Bedroom in nursing home as the place of occurrence of the external cause | CPT/HCPCS: A0425; A0429 ==

== ENCOUNTER 2017-05-04 07:35 | Emergency (ER) | payer MEDICARE ==
--- NOTE | 2017-05-04 07:45 | ED Physician Documentation ---
PD HPI Fall - Stated complaint Stated Complaint: a - History obtained from History obtained from: EMS - History of Present Illness Mechanism of injury: Unknown Fall distance: From bed Where injury occurred: Home Timing - onset: Today Injury(ies) location: Back Quality of pain: Pain Associated symptoms: Amnesia. No: Ear drainage, Nasal drainage, Neck pain, Weakness, Paresthesias, Dyspnea, Nausea / vomiting, Hematemesis, Abdominal distension Symptoms improve with: Rest Worsens with: Movement, Palpation Contributing factors: No: Anticoagulated Similar symptoms before: Diagnosis (hip fracture) Recently seen: Surgery - Additional information Additional information: 81-year-old male with advanced dementia was found this morning on the ground next to his bed which is not very high off the ground. He is complaining of pain in his lower and mid back. He has been recently admitted into the hospital for a fall with a hip fracture and he has had that hip pinned on the right. Subsequent to that he developed aspiration resulting in a white out of his left lung and hypotension and he required transfer to a tertiary center for bronchoscopy. The patient's indicates that yesterday he was having a bit of a decreased interaction. The day prior he had been quite interactive. She really relates that he recovered well from this pneumonia after being in the hospital at [facility] and he did not require bronchoscopy. He has been on thickened feedings and is not drinking water she is concerned about dehydration he apparently has brought blood drawn yesterday to evaluate that. Review of Systems Unable to obtain: Dementia PD PAST MEDICAL HISTORY - Past Medical History Cardiovascular: Coronary artery disease Respiratory: Asthma Neuro: None Endocrine/Autoimmune: Type 2 diabetes : None HEENT: None Psych: None Musculoskeletal: Osteoarthritis Derm: None - Past Surgical History Past Surgical History: Yes Cardiovascular: CABG - Present Medications Home Medications: Ambulatory Orders Medication Instructions Recorded Confirmed Atenolol 12.5 mg PO DAILY 07/24/16 05/04/17 Atorvastatin Calcium 20 mg PO DAILY 04/12/17 05/04/17 Tamsulosin [Flomax] 0.4 mg PO DAILY 04/12/17 05/04/17 - Allergies Allergies/Adverse Reactions: Allergies Allergy/AdvReac Type Severity Reaction Status Date / Time No Known Drug Allergies Allergy Verified 05/04/17 07:51 - Social History Does the pt smoke?: No Smoking Status: Never smoker Does the pt drink ETOH?: No Does the pt have substance abuse?: No - Immunizations Immunizations are current?: Yes - POLST Patient has POLST: No PD ED PE NORMAL - Vitals Vital signs reviewed: Yes - General General: No acute distress, Other (cachechtic ) - HEENT HEENT: Atraumatic, PERRL, EOMI - Neck Neck: Supple, no meningeal sign, No bony TTP - Cardiac Cardiac: RRR, No murmur - Respiratory Respiratory: No respiratory distress, Other (diminished breath sounds bilat) - Abdomen Abdomen: Soft, Non tender - Back Back: No CVA TTP, Other (There is some point tenderness to the mid lumbar and lower throacic spine) - Derm Derm: Normal color, Warm and dry, No rash - Extremities Extremities: No deformity, No edema, Other (The surgical site appears to have healed well without signs of inflamation or tenderness. ) - Neuro Neuro: No motor deficit, No sensory deficit, Normal speech Eye Opening: Spontaneous Motor: Obeys Commands Verbal: Confused GCS Score: 14 - Psych Psych: Normal mood, Normal affect Results - Vitals Vitals: Vital Signs - 24 hr 05/04/17 05/04/17 05/04/17 07:36 08:26 10:24 Temperature 37.2 C Heart Rate 63 65 60 Respiratory 16 18 16 Rate Blood Pressure 109/87 H 95/58 L 102/61 O2 Saturation 97 99 99 05/04/17 05/04/17 11:25 12:30 Temperature Heart Rate 64 75 Respiratory 18 16 Rate Blood Pressure 101/67 112/66 O2 Saturation 99 99 Oxygen O2 Source Room air - Labs Labs: Laboratory Tests 05/04/17 05/04/17 12:20 12:20 WBC 8.6 RBC 3.09 L Hgb 10.5 L Hct 30.4 L MCV 98.5 H MCH 34.0 H MCHC 34.5 RDW 16.3 H Plt Count 371 MPV 7.5 Neut # 5.5 Lymph # 1.8 [place] # 1.0 Eos # 0.2 Baso # 0.1 Absolute Nucleated RBC 0.00 Nucleated RBC % 0.0 Sodium 129 L Potassium 4.3 Chloride 93 L Carbon Dioxide 25 Anion Gap 11.0 BUN 19 Creatinine 0.5 L Estimated GFR (MDRD) 159 Glucose 90 Calcium 8.9 Total Bilirubin 0.7 AST 25 ALT 18 Alkaline Phosphatase 126 H Total Protein 7.1 Albumin 3.3 Globulin 3.8 Albumin/Globulin Ratio 0.9 L Lipase < 10 L - Rads (name of study) lumbar spine Radiology: Prelim report reviewed (Impression: 1. No acute fracture identified. Diffuse bone demineralization diminishes trabecular detail. 2. Moderate rotolevoscoliosis. 3. Advanced multi-level degenerative change. 4.Grade 1 degenerative retrolisthesis L3 on L4 severe atherosclerosis.), EMP read indepedently, See rad report thoracic spine Radiology: Prelim report reviewed (Impression: 1. Diffuse bone demineralization diminishes trabecular detail known severe T8 compression fracture deformity. 2. No obvious acute fracture identified. 3. Kyphoscoliosis. 4. Multilevel degenerative change.), EMP read indepedently, See rad report 2 veiw chest Radiology: Prelim report reviewed (Impression: 1. Substantial interval reexpansion of left lung. 2. Residual left basilar atelectasis and known hiatus hernia. 3. No acute thoracic abnormality identified.) Procedures - IVC sono (time) 1145 Bedside IVC sono: IVC measures (cm) (0.70), IVC collapsed c insp (cm) (complete) , Significant dehydration PD MEDICAL DECISION MAKING - ED course Complexity details: reviewed old records, reviewed results, re-evaluated patient , considered differential, d/w patient, d/w family ED course: 81-year-old male who fell out of a bed and has injured his lower back and is very weak. He is found to be dehydrated and is administered a liter of saline with improvement.He had no fractures on evaluation.His infiltrate on his chest x -ray appears markedly improved from our prior x-rays here. Departure - Departure Disposition: 01 Home, Self Care Clinical Impression: Dehydration Condition: Stable Instructions: ED Dehydration Follow-Up: Daljit Ch MD [Primary Care Provider] -
[2017-05-04] MEDS ORDERED: KETOROLAC 60 MG/2 ML VIAL IM STA (08:12)
--- NOTE | 2017-05-04 09:42 | XRAY Preliminary Report ---
Exam: XR CHEST 2 VIEW X-RAY IMPRESSION: 1. Substantial interval reexpansion of left lung. 2. Residual left basilar atelectasis and known hiatus hernia. 3. No acute thoracic abnormality identified. [facility] SITE ID: [id number]
--- NOTE | 2017-05-04 09:42 | XRAY Report ---
EXAM: CHEST RADIOGRAPHY EXAM DATE: 05/04/2017 09:24 AM. CLINICAL HISTORY: Fall out of bed. COMPARISON: AP chest 04/13/2017. TECHNIQUE: 2 views. FINDINGS: Lungs/Pleura: Interval significant reexpansion of the left lung. No segmental consolidation or vascul ar congestion. Mild left apical pleural parenchymal scarring. Small left pleural effusion. Mediastinum: Upper normal heart size. Tortuous calcified aorta. Known hiatus hernia. Other: Removal of right jugular central line. Median sternotomy changes. Chronic rib fracture deformi ties. No acute fracture identified. IMPRESSION: 1. Substantial interval reexpansion of left lung. 2. Residual left basilar atelectasis and known hiatus hernia. 3. No acute thoracic abnormality identified. [facility] Referring Provider Line: [phone] SITE ID: [id number]
--- NOTE | 2017-05-04 10:02 | XRAY Report ---
EXAM: THORACIC SPINE RADIOGRAPHY EXAM DATE: 05/04/2017 09:24 AM. CLINICAL HISTORY: Fall T/L back pain. COMPARISON: CTA chest 04/13/2017. TECHNIQUE: 2 views. FINDINGS: Alignment: Stable thoracic dextroscoliosis and moderate kyphosis. No spondylolisthesis. Bones: Diffuse bone demineralization diminishes to a detail. Known severe anterior wedge compression fracture of T8. No acute fracture is identified. Disks: Multilevel [id number] diskogenic disease, more prominent through mid and lower thoracic levels. Soft Tissues: No obvious paraspinous soft tissue swelling. IMPRESSION: 1. Diffuse bone demineralization diminishes trabecular detail. 2. Known severe T8 compression fracture deformity. No obvious acute fracture identified. 3. Kyphoscoliosis. Multilevel degenerative change. [facility] Referring Provider Line: [phone] SITE ID: [id number]
--- NOTE | 2017-05-04 10:09 | XRAY Preliminary Report ---
Exam: XR LUMBAR SPINE 2 VIEW IMPRESSION: 1. No acute fracture identified. Diffuse bone demineralization diminishes trabecular detail. 2. Moderate rotolevoscoliosis. 3. Advanced multilevel degenerative change. Grade 1 degenerative retrolisthesis L3 on L4. 4. Severe atherosclerosis. [facility] SITE ID: [id number]
--- NOTE | 2017-05-04 10:09 | XRAY Report ---
EXAM: LUMBOSACRAL SPINE RADIOGRAPHY EXAM DATE: 05/04/2017 09:24 AM. CLINICAL HISTORY: Fall, back T/L pain. COMPARISONS: CT abdomen pelvis 07/30/2014. TECHNIQUE: AP and crosstable lateral, 2 views. FINDINGS: Alignment: Moderate roto-levoscoliosis. Mild grade 1 retrolisthesis L3 on L4. Bones: Five ald-cnt-intaoxy lumbar vertebral bodies are present. Diffuse bone demineralization dimini shes trabecular detail. No acute compression fracture identified. Disks: Multilevel disk height loss without endplate changes, most advanced at L3-L4. Facets: Multilevel advanced facet arthrosis of mid and lower lumbar levels. Sacroiliac Joints: Grossly unremarkable. Other: Diffusely calcified abdominal aorta and common iliac arteries. Advanced bilateral hip DJD. Pro ximal right femoral fixation hardware partially seen. IMPRESSION: 1. No acute fracture identified. Diffuse bone demineralization diminishes trabecular detail. 2. Moderate rotolevoscoliosis. 3. Advanced multilevel degenerative change. Grade 1 degenerative retrolisthesis L3 on L4. 4. Severe atherosclerosis. [facility] Referring Provider Line: [phone] SITE ID: [id number]
[2017-05-04] MEDS ORDERED: SODIUM CHLORIDE 0.9% 1,000 ML IV ONE (11:49)
[2017-05-04 12:39] LABS: BASOPHILS # (AUTO) 0.1 10^3/uL (0.0-0.1); BASOPHILS % (AUTO) 0.8 %; EOSINOPHILS # (AUTO) 0.2 10^3/uL (0.0-0.7); HGB - HEMOGLOBIN 10.5 g/dL (14.0-18.0); LYMPHOCYTES # (AUTO) 1.8 10^3/uL (1.5-3.5); LYMPHOCYTES % (AUTO) 21.2 %; MEAN CORPUSCULAR HGB CONC 34.5 g/dL (32.0-36.0); MEAN CORPUSCULAR VOLUME 98.5 fL (80.0-94.0); MEAN PLATELET VOLUME 7.5 fL (7.4-11.4); MONOCYTES % (AUTO) 11.5 %; NEUTROPHILS # (AUTO) 5.5 10^3/uL (1.5-6.6); NEUTROPHILS % (AUTO) 64.5 %; PLT - PLATELET COUNT 371 10^3/uL (130-450); RED BLOOD COUNT 3.09 10^6/uL (4.70-6.10); RED CELL DISTRIBUTION WIDTH 16.3 % (12.0-15.0); WHITE BLOOD COUNT 8.6 x10^3/uL (4.8-10.8)
[2017-05-04 12:46] VITALS: BP 112/66
[2017-05-04 12:58] LABS: ALBUMIN 3.3 g/dL (3.2-5.5); ALBUMIN/GLOBULIN RATIO 0.9 (1.0-2.2); ALKALINE PHOSPHATASE 126 IU/L (42-121); ALT ALANINE AMINOTRANSFERASE 18 IU/L (10-60); AST ASPARTATE AMINOTRANSFERASE 25 IU/L (10-42); BILIRUBIN,TOTAL 0.7 mg/dL (0.2-1.0); BUN - BLOOD UREA NITROGEN 19 mg/dL (6-20); CALCIUM 8.9 mg/dL (8.5-10.3); CARBON DIOXIDE - CO2 25 mmol/L (21-32); CHLORIDE 93 mmol/L (101-111); CREATININE 0.5 mg/dL (0.6-1.2); GFR - MDRD 159 (>89); GLUCOSE 90 mg/dL (70-100); LIPASE < 10 U/L (22-51); SODIUM 129 mmol/L (135-145); TOTAL PROTEIN 7.1 g/dL (6.7-8.2)
== END 2017-05-04 15:30 | disposition home or self-care (01) ==
LOC: ED 07:35
DX: E86.0 Dehydration (principal); S39.92XA Unspecified injury of lower back, initial encounter; W06.XXXA Fall from bed, initial encounter; Y92.013 Bedroom of single-family (private) house as the place of occurrence of the external cause; R53.1 Weakness; F03.90 Unspecified dementia, unspecified severity, without behavioral disturbance, psychotic disturbance, mood disturbance, and anxiety; J45.909 Unspecified asthma, uncomplicated; I25.10 Atherosclerotic heart disease of native coronary artery without angina pectoris; Z95.1 Presence of aortocoronary bypass graft; E11.9 Type 2 diabetes mellitus without complications; M19.90 Unspecified osteoarthritis, unspecified site
CPT/HCPCS: 36415; 71046; 72070; 72100; 80053; 83690; 85025; 96360; 96372; 99283; 99284

== ENCOUNTER 2017-05-15 08:00 | Outpatient (CLI) | payer MEDICARE ==
[2017-05-15 15:28] LABS: CALCIUM 8.7 mg/dL (8.5-10.3); CREATININE 0.6 mg/dL (0.6-1.2); MAGNESIUM 1.8 mg/dL (1.7-2.8)
== END 2017-05-15 23:59 | disposition home or self-care (01) ==
LOC: LAB.R 08:00
DX: I48.1 Persistent atrial fibrillation (principal)
CPT/HCPCS: 80048; 83735

== ENCOUNTER 2017-05-18 11:32 | Emergency (ER) | payer MEDICARE ==
--- NOTE | 2017-05-18 12:43 | ED Physician Documentation ---
PD HPI URI - Stated complaint Stated Complaint: COUGH - Chief complaint Chief Complaint: Resp - History obtained from History obtained from: Patient, Family () - History of Present Illness Timing - onset: How many days ago (has had a cough for few days and had xray done at [facility] but apparently not good images and concern for effusion (which he has had). Referred to ER from [facility] to get better CXR and some lab evaluations. INitial BP was low. He is on BP meds and is taking them regularly.) Timing duration: Days (some cough for few days and seems to have general weakness.) Timing details: Gradual onset, Still present Associated symptoms: Productive cough. No: Fever, Hemoptysis, Chest pain Worsened by: Activity (he does not get out of bed hardly at all since hip fracture few months ago then healing and got a pneumonia and then UTI. Was sent from [facility] to [facility]. Seemed to be doing okay there and now with some cough and congestion.) Similar symptoms before: Has not had sx before (pneumonia) Recently seen: Admitted (for pneumonia and effusions) Review of Systems Constitutional: denies: Fever, Chills Nose: reports: Other Throat: denies: Sore throat Cardiac: denies: Chest pain / pressure Respiratory: reports: Dyspnea, Cough GI: denies: Abdominal Pain, Nausea, Vomiting, Diarrhea Neurologic: reports: Generalized weakness, Altered mental status (somewhat sleepier than baseline this morning.). denies: Focal weakness, Numbness, Headache Endocrine: reports: Weight loss. denies: Weight gain Immunocompromised: denies: Immunocompromised, Chemotherapy PD PAST MEDICAL HISTORY - Past Medical History Cardiovascular: Coronary artery disease Respiratory: Asthma Neuro: None Endocrine/Autoimmune: Type 2 diabetes : None HEENT: None Psych: None Musculoskeletal: Osteoarthritis Derm: None - Past Surgical History Past Surgical History: Yes Cardiovascular: CABG - Present Medications Home Medications: Ambulatory Orders Medication Instructions Recorded Confirmed Atenolol 12.5 mg PO DAILY 07/24/16 05/04/17 Atorvastatin Calcium 20 mg PO DAILY 04/12/17 05/04/17 Tamsulosin [Flomax] 0.4 mg PO DAILY 04/12/17 05/04/17 Albuterol 2.5 mg INH Q4H PRN #30 neb 05/18/17 Dexamethasone [Decadron] 4 mg PO DAILY #5 tablet 05/18/17 Doxycycline Monohydrate 100 mg PO BID #14 tablet 05/18/17 - Allergies Allergies/Adverse Reactions: Allergies Allergy/AdvReac Type Severity Reaction Status Date / Time No Known Drug Allergies Allergy Verified 05/04/17 07:51 - Social History Does the pt smoke?: No Smoking Status: Never smoker Does the pt drink ETOH?: No Does the pt have substance abuse?: No - Immunizations Immunizations are current?: Yes - POLST Patient has POLST: No PD ED PE NORMAL - Vitals Vital signs reviewed: Yes - General General: Alert and oriented X 3, No acute distress, Well developed/nourished - HEENT HEENT: Atraumatic, Pharynx benign - Neck Neck: Supple, no meningeal sign, No adenopathy - Cardiac Cardiac: RRR, No murmur - Respiratory Respiratory: No: Clear bilaterally (some wheezes noted centrally mostly. No coarse sounds per se. ) - Abdomen Abdomen: Normal bowel sounds, Soft, Non distended, No organomegaly Results - Vitals Vitals: Oxygen O2 Source Room air - Labs Labs: Laboratory Tests 05/18/17 05/18/17 05/18/17 12:10 12:10 12:10 WBC 7.8 RBC 3.13 L Hgb 10.5 L Hct 30.9 L MCV 98.6 H MCH 33.6 H MCHC 34.1 RDW 15.8 H Plt Count 262 MPV 8.3 Neut # 5.5 Lymph # 1.2 L Emanuel # 0.9 Eos # 0.0 Baso # 0.1 Absolute Nucleated RBC 0.00 Nucleated RBC % 0.0 Manual Slide Review Indicated WBC Morphology 1+ SMUDGE CELLS Platelet Estimate NORMAL (130-450,000) Platelet Morphology NORMAL APPEARANCE RBC Morph Micro Appear NORMAL APPEARANCE Sodium 131 L Potassium 3.4 L Chloride 98 L Carbon Dioxide 26 Anion Gap 7.0 BUN 21 H Creatinine 0.4 L Estimated GFR (MDRD) 205 Glucose 82 Calcium 8.4 L Magnesium 2.0 Total Bilirubin 0.5 AST 27 ALT 17 Alkaline Phosphatase 98 B-Natriuretic Peptide 154 H Total Protein 7.0 Albumin 3.0 L Globulin 4.0 Albumin/Globulin Ratio 0.8 L Lipase 14 L - Rads (name of study) chest xray Radiology: Prelim report reviewed, EMP read contemporaneously (no infiltrates both sides with trace small effusions. ) PD MEDICAL DECISION MAKING - ED course Complexity details: reviewed results (Chest xray is pretty good, wit h small effusions and no infiltrates. He does have cough and with history of frail and asthma, consider abx as literature suggests may have benefit even if seems viral /allergic mainly. ), considered differential, d/w patient Departure - Departure Disposition: 01 Home, Self Care Clinical Impression: Cough Upper respiratory tract infection Qualifiers: URI type: unspecified URI Qualified Code(s): J06.9 - Acute upper respiratory infection, unspecified Condition: Stable Record reviewed to determine appropriate education?: Yes Instructions: ED Upper Resp Infec Abx Tx Follow-Up: Daljit Ch MD [Primary Care Provider] - Prescriptions: Albuterol 2.5 mg INH Q4H PRN #30 neb PRN Reason: Wheezing Dexamethasone [Decadron] 4 mg PO DAILY #5 tablet Doxycycline Monohydrate 100 mg PO BID #14 tablet Comments: No signs of pneumonia nor significant infection at this time. There was some congestion in your oxygenation did improve with nebulizer treatment. I would have carriage continue the nebulizers or inhaler 4 times a day for the next 5 or 6 days for the next 5 days. Given your underlying lung disease of asthma, I would also give some steroids and antibiotics. So the directions for carriage are: Albuterol inhaler or nebulizer 4 times a day for 5 days Doxycycline 100 mg twice daily for a week Dexamethasone 4 mg tablet daily for 5 days Other medications the same. Discharge Date/Time: 05/18/17 15:48
[2017-05-18] MEDS ORDERED: SODIUM CHLORIDE 0.9% 500 ML IV ONE (13:00)
[2017-05-18] MEDS ORDERED: ALBUTEROL NEB 2.5 MG/3 ML INH STA (13:00)
[2017-05-18 13:25] LABS: BASOPHILS # (AUTO) 0.1 10^3/uL (0.0-0.1); BASOPHILS % (AUTO) 1.1 %; EOSINOPHILS % (AUTO) 0.5 %; HGB - HEMOGLOBIN 10.5 g/dL (14.0-18.0); LYMPHOCYTES # (AUTO) 1.2 10^3/uL (1.5-3.5); LYMPHOCYTES % (AUTO) 15.7 %; MEAN CORPUSCULAR HEMOGLOBIN 33.6 pg (27.0-31.0); MEAN CORPUSCULAR HGB CONC 34.1 g/dL (32.0-36.0); MEAN CORPUSCULAR VOLUME 98.6 fL (80.0-94.0); MEAN PLATELET VOLUME 8.3 fL (7.4-11.4); MONOCYTES # (AUTO) 0.9 10^3/uL (0.0-1.0); MONOCYTES % (AUTO) 11.9 %; NEUTROPHILS # (AUTO) 5.5 10^3/uL (1.5-6.6); NEUTROPHILS % (AUTO) 70.8 %; PLT - PLATELET COUNT 262 10^3/uL (130-450); RED BLOOD COUNT 3.13 10^6/uL (4.70-6.10); RED CELL DISTRIBUTION WIDTH 15.8 % (12.0-15.0); WHITE BLOOD COUNT 7.8 x10^3/uL (4.8-10.8)
[2017-05-18 13:32] LABS: ALBUMIN/GLOBULIN RATIO 0.8 (1.0-2.2); BILIRUBIN,TOTAL 0.5 mg/dL (0.2-1.0); CALCIUM 8.4 mg/dL (8.5-10.3); CREATININE 0.4 mg/dL (0.6-1.2)
[2017-05-18 13:52] LABS: PLATELET ESTIMATE, MANUAL NORMAL (130-450,000) (NORMAL); PLATELET MORPHOLOGY NORMAL APPEARANCE (NORMAL); RBC MORPHOLOGY (MULTIPLE) NORMAL APPEARANCE (NORMAL)
--- NOTE | 2017-05-18 14:11 | XRAY Report ---
EXAM: CHEST RADIOGRAPHY EXAM DATE: 05/18/2017 01:43 PM. CLINICAL HISTORY: Chest pain left sided. COMPARISON: 05/04/2017. TECHNIQUE: 2 views. FINDINGS: Lungs/Pleura: No acute consolidation. Right pleural effusion appears mildly increased. Small left ple ural effusion is unchanged. No pneumothorax. Mediastinum: Heart and mediastinal contours are stable. Hiatal hernia unchanged. Other: None. IMPRESSION: Mildly increased small right pleural effusion. Unchanged small left pleural effusion. No new consolidation. [facility] Referring Provider Line: [phone] SITE ID: [id number]
[2017-05-18] MEDS ORDERED: DEXAMETHASONE 10 MG/ML VIAL IVP STA (14:36)
[2017-05-18] MEDS ORDERED: DOXYCYCLINE 100 MG TABLET PO STA (14:36)
[2017-05-18 15:50] VITALS: BP 114/62
== END 2017-05-18 15:48 | disposition home or self-care (01) ==
LOC: ED 11:32
DX: R05 Cough (principal); J06.9 Acute upper respiratory infection, unspecified; J45.909 Unspecified asthma, uncomplicated; I25.10 Atherosclerotic heart disease of native coronary artery without angina pectoris; Z95.1 Presence of aortocoronary bypass graft
CPT/HCPCS: 36415; 71046; 80053; 83690; 83735; 83880; 85025; 94640; 99283; 99284; A9270; J7613

== ENCOUNTER 2017-05-21 15:45 | Outpatient (CLI) | payer MEDICARE ==
--- NOTE | 2017-05-21 18:32 | CONSULTATION NOTE ---
Palliative Care Consultation - Referral Referring Provider: Dr Parag Yousif Time of Visit: 05/21/2017. 13:20 - 14:5 Referral setting: [facility] ([facility]) - Information Sources Records reviewed: RN notes reviewed, Previous records reviewed History/Review of Systems obtained from: Patient, Family, Nursing, Other (Dr yousif) Exam limitations: Clinical condition (Advanced dementia, confusion) - History of Present Illness Brief History of Present Illness: Thank you, Dr Yousif, for asking the palliative care consult service to be involved in the care of your patient. I am asked to provide support regarding advanced care planning. 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 He used to use a cane to walk, and on 04/10/17 he was getting up from the couch to go to the bathroom, lost his balance, tripped and fell backwards on his R side, resulting in a R femoral intertrochanteric fracture. He underwent surgery at [facility] to repair the fracture. Two days post-op he became hypotensive and rapid response team was called in 3 separate times for hypotensive and atrial fibrillation episodes. He was stabilized with amiodarone, and a CXR revealed a complete white-out of his L lung and a CT scan of the chest showed the entire L lung had collapsed and a mass, probably food, was totally obstructing the L bronchus. The patient required transfer to a tertiary care center to an hot metal crane operator and for bronchoscopy, which is not available at [facility]. He was airlifted to [facility] and was treated there for pneumonia as well as a UTI. He was eventually transferred from [facility] to [facility] several weeks ago for rehabilitation. On May 18, there was concern for L basilar infiltrate after a few days of cough and congestion, so [facility] sent him to ED to get a better CXR and some labs. He was released the same day with orders for doxycycline until 05/25 and dexamethasone until 05/23/17. He has been declining in functionality and cognition since his fracture and subsequent hospitalization, and the nuclear medical technologist of [facility] requested palliative care support on advanced care planning. Today's visit was with the patient, his son Burt, and myself. The spouse/DPOA was not present, but she told me over the phone prior to our visit, that her has had symptoms of dementia for several years, but following the hip fracture and subsequent events, his cognition and functionality has significantly declined. Prior to the fracture he was ambulatory with his cane, and now he is wheelchair bound. He wants to go home, which is [place] where he lives with his , and he stated this several times during my visit. He repeatedly told me good-bye and appeared to think he would "go home" with his son, Burt. He repeatedly made attempts to wheel himself away, and to rise up from his wheelchair, but he is too weak to do so. He makes good eye contact and readily smiles at me but is confused and unable to respond appropriately to questions. Cognitively he is at FAST scale 6e, or possibly 7a. Information obtained from patient, family, nursing staff, and EMR chart notes from hospital. Medical/Surgical History - Past Medical History Cardiovascular: reports: Congestive heart failure (50% EF), Coronary artery disease, Atrial fibrillation Respiratory: reports: Asthma, COPD, Other (Atelectasis of the L lung) Neuro: reports: None, Dementia Endocrine/Autoimmune: reports: Type 2 diabetes GI: reports: Hiatal hernia : reports: None, Incontinence HEENT: reports: None, Chronic hearing loss Psych: reports: None Musculoskeletal: reports: Osteoarthritis Derm: reports: None MRSA Hx?: No - Past Surgical History Cardiovascular: reports: CABG (x 3 in 1999) - Substance History Use: Uses substance without health or social issues: Tobacco (never smoker), Alcohol (no) Social History - Living Situation Living arrangement: Assisted living ([place], in [place]) Living Situation: With spouse/s.o. Support System: 59 years to [place], with what is described as a close family, with 1 daughter, Leela, who lives in [place] and has a healthcare-associated job, and 2 sons, Burt and Frankie, who live on [address] and work for the [employer]. They have multiple grandchildren. The patient worked in real estate. Family History - Family History Family History: Mother: (Half brother in 1941. No other siblings.) , CVA/TIA ( in her 60s), Father: , Cancer ( in his 60s), Brother : Medications/Allergies - Medications Home Medications: Ambulatory Orders Medication Instructions Recorded Confirmed Atorvastatin Calcium 20 mg PO DAILY 04/12/17 05/21/17 Tamsulosin [Flomax] 0.4 mg PO DAILY 04/12/17 05/04/17 Albuterol 2.5 mg INH Q4H PRN #30 neb 05/18/17 05/21/17 Dexamethasone [Decadron] 4 mg PO DAILY #5 tablet 05/18/17 05/21/17 Doxycycline Monohydrate 100 mg PO BID #14 tablet MDD until 05/18/17 05/25/17 Acetaminophen 650 mg PO Q6H PRN 05/21/17 05/21/17 Brimonidine 0.15% Ophth Drops 1 drops LEFTEYE BID 05/21/17 05/21/17 [Alphagan P 0.15% Ophth Drops] Brinzolamide 1% Ophth Drops [Azopt 1 drops EACHEYE BID 05/21/17 05/21/17 1% Ophth Drops] Calcium Carbonate [Antacid] 200 mg PO TID 05/21/17 05/21/17 Carvedilol 3.125 mg PO DAILY 05/21/17 05/21/17 Dorzolamide 2% Ophth Drops 1 drops EACHEYE BID MDD Hold from 05/21/17 05/21/17 [Trusopt 2% Ophth Drops] 05/13/17 - 06/13/17 Ferrous Gluconate 240 mg PO 05/21/17 House Bowel Program 1 ea LA DAILY PRN 05/21/17 Latanoprost 0.005% Ophth Drops 1 drops EACHEYE .QHS 05/21/17 05/21/17 [Xalatan Ophth Drops] Magnesium Oxide 400 mg PO BID 05/21/17 05/21/17 Medpass 2.0 90 ml PO BID 05/21/17 - Allergies Allergies/Adverse Reactions: Allergies Allergy/AdvReac Type Severity Reaction Status Date / Time No Known Drug Allergies Allergy Verified 05/04/17 07:51 Review of Systems - Constitutional Constitutional: reports: Weakness, Weight loss (110 lbs 05/15/17. 11.4 lbs . 109.4 lb 05/03/17. Hospital reported weight of 134 lbs but disputes this, states it was more like 122 lbs she remembers from clinic measurement in February 2017.) - Ears, Nose & Throat Ears, Nose & Throat: reports: Hearing loss, Dental decay (poor dentition; prominent, dark, discolored teeth) - Cardiovascular Cardiovascular: denies: Chest pain - Respiratory Respiratory: reports: Cough. denies: SOB at rest - Gastrointestinal Gastrointestinal: reports: Other (inconsistent eating patterns, from nothing to 50%, 75%, 100%). denies: Constipation - Genitourinary Genitourinary: reports: Incontinence (of bowel and bladder), Nocturia - Musculoskeletal Musculoskeletal: reports: Transfer issues (2-person assist) - Endocrine Endocrine: reports: Diabetes type 2 (Non-insulin; metformin on hold) - Other Findings Other Findings: unable to obtain ROS from patient due to cognitive deficit Physical Exam - Vital Signs Temperature: 96.9 F Pulse Rate: 71 O2 Saturation: 95 Blood Pressure: 96/50 - Physical Exam General Appearance: positive: No acute distress, Alert Eyes Bilateral: positive: No lid inflammation, Conjunctivae nml, No scleral icterus ENT: positive: No signs of dehydration Neck: positive: No JVD, Trachea midline Cardiovascular: positive: Regular rate & rhythm, No murmur, No gallop Respiratory: positive: No respiratory distress, Diminished throughout, Rhonchi Skin: positive: Pressure wound (R heel wound, Stage II, clean, covered with dressing) Extremities: positive: Nml appearance, No pedal edema Neurologic/Psychiatric: positive: Mood/affect nml, Disoriented to place, Disoriented to time Palliative Care - POLST Patient has POLST: No Pain: No pain, Location (R hip), Comment (denied pain currently, but R hip is sporadically painful) Performance Status: Ambulates in wheelchair; previous to his R hip fracture he was ambulatory with a cane. Requires 2 person assist for transfers. Incontinent of bowel and bladder. Extensive assist for all ADLs. Nursing reports he has increased confusion particularly in the evening and at night since his admission. The hospital reported the same trend. He has poor safety awareness. - Palliative Care Discussion: The patient's spouse was not present at this initial visit today; [place]. I did speak with her the day before my visit and her concern that she may not be able to manage everything at home. Son Burt was the only family member present at today's visit. I discussed with Burt palliative care and also hospice services and the POLST form. Burt admits the family has not spoken much about hospice, advanced care planning, and other matters. He feels his mother and brother may have difficulty facing the patient's declining state, or discussing end of life matters. The patient is quite cognitively impaired and has a lot of difficulty retaining information. But he is able to make clear that he wants to go home, and does not want to stay at [facility]. From what Burt says, it may be that the other son, Frankie, supports his father in his wish to go home. Burt has insight and understanding that his father is declining and will need more oversight, as does the daughter, Leela, who has inquired with [facility] about end of life issues and how to proceed and acknowledges need for decision-making regarding intensity of care going forward. This is according to Nursing reports. Burt reports that there is a meeting scheduled for next (05/27/17), likely a care conference with the facility. The facility's SQL SERVER CONSULTANT was not available today to confirm that I offered to have a family conference, and Burt will speak with the family. He will also be at the care conference with the facility. I will call the patient's spouse next week to set up a follow up visit. Results - Lab Results Lab and Imaging Results: HgbA1c 5.3 on admission 04/11/17 05/18/17: WBC 7.8 RBC 3.13 L Hgb 10.5 L Hct 30.9 L MCV 98.6 H Neut # 5.5 Lymph # 1.2 L Sodium 131 L Potassium 3.4 L Chloride 98 L Carbon dioxide 26 BUN 21 H Cr 0.4 L Est GFR 205 Impression and Recommendations - Palliative Care Impression: This is an 81-year-old gentleman with dementia and non-insulin dependent diabetes, HTN, asthma, COPD, CHF (EF 49%), CAD with remote CABG bypass 17 years ago, persistent afib, failure to thrive/cachexia. He fell and fractured his R hip in March and during post-op hospitalization, was airlifted to [facility] for treatment of L lung had collapsed and a total obstruction of the L bronchus. He is currently in rehabilitation, but has significant weight loss, cognitive and functional decline and failure to thrive. Patient and family would benefit from palliative care oversight and support in advanced care planning. Recommendations/Counseling Done: R hip fracture: Resolving. On PT/OT for strengthening Osteoarthritis: Tylenol for pain control. Pneumonia/L basilar infiltrate: Doxycycline until 05/25 and dexamethasone until . A fibrillation: Not on anticoagulation due to fall risk. DM II: Non-insulin. Off metformin. HgbA1c 5.3 at admission. Failure to thrive: Meal intake is inconsistent, from 0% to 100%. Consider using appetite stimulant. Continue MedPass. R heel pressure wound: Stage II, managed by facility nursing staff Advanced care planning: No POLST. /DPOA was not at initial meeting today. Plan for a follow up visit after their care conference next . Follow up next week. Time Spent: 55 minutes were spent with more than 50% of the time spent on counseling, education, and coordination of care. Provided anticipatory guidance.
== END 2017-05-21 15:46 | disposition home or self-care (01) ==
LOC: PC 15:45
PROVIDERS: ATTEND Nurse Practitioner
DX: Z51.5 Encounter for palliative care (principal); S72.001D Fracture of unspecified part of neck of right femur, subsequent encounter for closed fracture with routine healing; M19.90 Unspecified osteoarthritis, unspecified site; J18.9 Pneumonia, unspecified organism; I48.91 Unspecified atrial fibrillation; E11.9 Type 2 diabetes mellitus without complications; R62.7 Adult failure to thrive; F03.90 Unspecified dementia, unspecified severity, without behavioral disturbance, psychotic disturbance, mood disturbance, and anxiety; J44.9 Chronic obstructive pulmonary disease, unspecified; I50.9 Heart failure, unspecified; Z99.3 Dependence on wheelchair
CPT/HCPCS: 99306